=== PATIENT | male | born 1960 | race Caucasian/White ===

== ENCOUNTER → 2017-01-19 | Outpatient (CLI) | payer MEDICARE, OTHER ==
--- NOTE | 2017-01-19 12:11 | XR ---
EXAMINATION TYPE: XR chest 2V DATE OF EXAM: 01/19/2017 12:06 PM COMPARISON: NONE HISTORY: Shortness of breath TECHNIQUE: Frontal and lateral views of the chest are obtained. FINDINGS: Scattered senescent parenchymal changes noted. Hyperinflation compatible with COPD. No evidence for infiltrate. No evidence for atelectasis. Heart size is stable. Mediastinal structures are stable and grossly unremarkable. No evidence for hilar prominence. Degenerative changes dorsal spine. IMPRESSION: 1. No evidence for acute pulmonary disease.
--- NOTE | 2017-01-19 12:12 | XR ---
EXAMINATION TYPE: XR ribs LT DATE OF EXAM: 01/19/2017 12:06 PM CLINICAL HISTORY: Pain, Fall Four views of the ribs fail demonstrate evidence for displaced rib fracture or secondary sign of rib fracture. Visualized lungs are clear. No evidence for pneumothorax. IMPRESSION: No displaced rib fractures seen. ICD 10 NO FRACTURE, INITIAL EVALUATION
== END | disposition home or self-care (01) ==
LOC: RADXRMAIN 11:51
PROVIDERS: ATTEND Family Medicine
DX: R05 Cough (principal)
CPT/HCPCS: 71020

== ENCOUNTER → 2017-02-09 | Outpatient (CLI) | payer MEDICARE, OTHER ==
[2017-02-09 08:29] LABS: Basophils # (A) 0.1 k/uL (0-0.2); Basophils % (A) 1 %; CH 29.6; CHCM 33.9; Eosinophils % (A) 0 %; HCT 46.1 % (39.0-53.0); HDW 2.82; HGB 15.5 gm/dL (13.0-17.5); Luc # (Auto) 0.15; Luc % (Auto) 1; Lymphocytes # (A) 1.9 k/uL (1.0-4.8); Lymphocytes % (A) 17 %; MCH 29.6 pg (25.0-35.0); MCHC 33.7 g/dL (31.0-37.0); MCV 87.8 fL (80.0-100.0); Mean Platelet Volume 8.4; Monocytes # (A) 0.3 k/uL (0-1.0); Monocytes % (A) 2 %; Neutrophils # (A) 8.6 k/uL (1.3-7.7); Neutrophils % (A) 78 %; RBC 5.25 m/uL (4.30-5.90); RDW 13.1 % (11.5-15.5); WBC 10.9 k/uL (3.8-10.6); WBC (Perox) 11.44
== END | disposition home or self-care (01) ==
LOC: LABWHC1 08:09
PROVIDERS: ATTEND Family Medicine
DX: D69.6 Thrombocytopenia, unspecified (principal)
CPT/HCPCS: 36415; 85025

== ENCOUNTER 2019-12-10 16:22 | Inpatient (IN) | payer MEDICARE, OTHER ==
--- NOTE | 2019-12-10 16:59 | ED ---
General Adult HPI - General Chief complaint: Chest Pain Stated complaint: chest pain Time Seen by Provider: 12/10/19 16:38 Source: patient, RN notes reviewed, old records reviewed Mode of arrival: wheelchair Limitations: no limitations - History of Present Illness Initial comments: 59-year-old male presented for evaluation of chest pain. Patient has had symptoms for the past several months. He was evaluated by his primary care physician and sent to the emergency department with chief complaint of chest pain. Describes this as a pressure sensation in the center of his chest. It has been present for several months although does seem to fluctuate with exertion. He was given aspirin by his primary care physician and sent to the emergency department. He states he does have a history of previous NC, does not have any stenting. No history DVT or PE. He denies vomiting or diaphoresis. He states this pain didn't radiate to his jaw at times. He has minimal symptoms at the time my evaluation. He is a diabetic with history of hypertension. - Related Data Allergies Allergy/AdvReac Type Severity Reaction Status Date / Time Iodinated Contrast Media Allergy Anaphylaxis Verified 12/10/19 19:10 lithium Allergy Rash/Hives Verified 12/10/19 16:35 shellfish derived [Shellfish] Allergy Anaphylaxis Verified 12/10/19 16:35 Review of Systems ROS Statement: Those systems with pertinent positive or pertinent negative responses have been documented in the HPI. ROS Other: All systems not noted in ROS Statement are negative. Past Medical History Past Medical History: Diabetes Mellitus, Hyperlipidemia, Hypertension Additional Past Medical History / Comment(s): leukemia, chronic neck and back pain History of Any Multi-Drug Resistant Organisms: None Reported Past Surgical History: Hernia Repair Past Psychological History: No Psychological Hx Reported Smoking Status: Never smoker Past Alcohol Use History: None Reported Past Drug Use History: None Reported General Exam Limitations: no limitations General appearance: alert, in no apparent distress Head exam: Present: atraumatic, normocephalic Eye exam: Present: normal appearance, PERRL ENT exam: Present: normal exam Neck exam: Present: normal inspection. Absent: tenderness Respiratory exam: Present: normal lung sounds bilaterally. Absent: respiratory distress, wheezes Cardiovascular Exam: Present: regular rate, normal rhythm GI/Abdominal exam: Present: soft. Absent: distended, tenderness, guarding Extremities exam: Present: normal inspection, normal capillary refill. Absent: pedal edema, calf tenderness Neurological exam: Present: alert, oriented X3, CN II-XII intact. Absent: motor sensory deficit Psychiatric exam: Present: normal affect, normal mood Skin exam: Present: warm, dry, intact. Absent: cyanosis, diaphoretic Course Vital Signs 12/10/19 12/10/19 16:32 16:58 Temperature 98.5 F Pulse Rate 104 H 104 H Respiratory 18 18 Rate Blood Pressure 154/89 134/82 O2 Sat by Pulse 98 97 Oximetry EKG Findings - EKG Comments: EKG Findings:: EKG: Sinus tachycardia, rate of 104 LVH, T-wave abnormality in the inferior leads. He has a S wave in lead 1, Q3 T3, rate of 104, NV interval 140, QRS duration 88, QTC 491, no old for comparison. Medical Decision Making - Medical Decision Making 59-year-old male presenting with chest pain which is been ongoing for months. Symptoms by his primary care physician. EKG showing sinus rhythm with no ST segment elevation. Chest x-ray negative for acute cardiopulmonary disease. Patient has mild leukocytosis 13.4 with no definitive source of infection. He has an elevated blood sugar to 99. He is given some IV hydration and insulin for his elevated blood sugar. He has a negative troponin. He has CT angiography performed in the emergency department which is negative for pulmonary embolism, does show coronary calcifications. Patient is initiated on heparin. Case is discussed with the admitting physician Dr. Reynaga who is able to evaluate the patient in the emergency department. Echo has been ordered this is pending. Cardiology has been placed on consult, serial cardiac enzymes will be obtained. - Lab Data Result diagrams: 12/10/19 16:54 12/10/19 16:54 Lab Results 12/10/19 12/10/19 12/10/19 Range/Units 16:54 16:54 16:54 WBC 13.4 H (3.8-10.6) k/uL RBC 5.39 (4.30-5.90) m/uL Hgb 15.5 (13.0-17.5) gm/dL Hct 47.3 (39.0-53.0) % MCV 87.7 (80.0-100.0) fL MCH 28.7 (25.0-35.0) pg MCHC 32.8 (31.0-37.0) g/dL RDW 13.2 (11.5-15.5) % Plt Count 259 (150-450) k/uL Neutrophils % 63 % Lymphocytes % 30 % Monocytes % 4 % Eosinophils % 1 % Basophils % 1 % Neutrophils # 8.4 H (1.3-7.7) k/uL Lymphocytes # 4.0 (1.0-4.8) k/uL Monocytes # 0.6 (0-1.0) k/uL Eosinophils # 0.1 (0-0.7) k/uL Basophils # 0.1 (0-0.2) k/uL PT (9.0-12.0) sec INR (<1.2) APTT (22.0-30.0) sec Sodium 136 L (137-145) mmol/L Potassium 4.5 (3.5-5.1) mmol/L Chloride 103 (98-107) mmol/L Carbon Dioxide 18 L (22-30) mmol/L Anion Gap 15 mmol/L BUN 16 (9-20) mg/dL Creatinine 0.75 (0.66-1.25) mg/dL Est GFR (CKD-EPI)AfAm >90 (>60 ml/min/1.73 sqM) Est GFR (CKD-EPI)NonAf >90 (>60 ml/min/1.73 sqM) Glucose 299 H (74-99) mg/dL Calcium 9.9 (8.4-10.2) mg/dL Magnesium 1.9 (1.6-2.3) mg/dL Total Bilirubin 0.5 (0.2-1.3) mg/dL AST 49 (17-59) U/L ALT 31 (4-49) U/L Alkaline Phosphatase 77 (38-126) U/L Troponin I (0.000-0.034) ng/mL NT-Pro-B Natriuret Pep 35 pg/mL Total Protein 7.4 (6.3-8.2) g/dL Albumin 4.4 (3.5-5.0) g/dL Lipase 169 (23-300) U/L 12/10/19 12/10/19 Range/Units 16:54 16:54 WBC (3.8-10.6) k/uL RBC (4.30-5.90) m/uL Hgb (13.0-17.5) gm/dL Hct (39.0-53.0) % MCV (80.0-100.0) fL MCH (25.0-35.0) pg MCHC (31.0-37.0) g/dL RDW (11.5-15.5) % Plt Count (150-450) k/uL Neutrophils % % Lymphocytes % % Monocytes % % Eosinophils % % Basophils % % Neutrophils # (1.3-7.7) k/uL Lymphocytes # (1.0-4.8) k/uL Monocytes # (0-1.0) k/uL Eosinophils # (0-0.7) k/uL Basophils # (0-0.2) k/uL PT 9.6 (9.0-12.0) sec INR 0.9 (<1.2) APTT 22.9 (22.0-30.0) sec Sodium (137-145) mmol/L Potassium (3.5-5.1) mmol/L Chloride (98-107) mmol/L Carbon Dioxide (22-30) mmol/L Anion Gap mmol/L BUN (9-20) mg/dL Creatinine (0.66-1.25) mg/dL Est GFR (CKD-EPI)AfAm (>60 ml/min/1.73 sqM) Est GFR (CKD-EPI)NonAf (>60 ml/min/1.73 sqM) Glucose (74-99) mg/dL Calcium (8.4-10.2) mg/dL Magnesium (1.6-2.3) mg/dL Total Bilirubin (0.2-1.3) mg/dL AST (17-59) U/L ALT (4-49) U/L Alkaline Phosphatase (38-126) U/L Troponin I <0.012 (0.000-0.034) ng/mL NT-Pro-B Natriuret Pep pg/mL Total Protein (6.3-8.2) g/dL Albumin (3.5-5.0) g/dL Lipase (23-300) U/L Critical Care Time Critical Care Time: Yes Total Critical Care Time: 35 Disposition Clinical Impression: Unstable angina pectoris Disposition: ADMITTED IP TO THIS HOSP Condition: Stable Is patient prescribed a controlled substance at d/c from ED?: No Referrals: Alex Mars MD [Primary Care Provider] - 1-2 days Decision to Admit Reason: Admit from EC Decision Date: 12/10/19 Decision Time: 20:08
[2019-12-10 17:09] LABS: Basophils # (A) 0.1 k/uL (0-0.2); Basophils % (A) 1 %; Eosinophils # (A) 0.1 k/uL (0-0.7); Eosinophils % (A) 1 %; HCT 47.3 % (39.0-53.0); HGB 15.5 gm/dL (13.0-17.5); Lymphocytes % (A) 30 %; MCH 28.7 pg (25.0-35.0); MCHC 32.8 g/dL (31.0-37.0); MCV 87.7 fL (80.0-100.0); Mean Platelet Volume 7.7; Monocytes # (A) 0.6 k/uL (0-1.0); Monocytes % (A) 4 %; Neutrophils # (A) 8.4 k/uL (1.3-7.7); Neutrophils % (A) 63 %; Platelet Count 259 k/uL (150-450); RBC 5.39 m/uL (4.30-5.90); RDW 13.2 % (11.5-15.5); WBC 13.4 k/uL (3.8-10.6)
[2019-12-10 17:38] LABS: INR 0.9 (<1.2); Partial Thromboplastin Time 22.9 sec (22.0-30.0); Prothrombin Time 9.6 sec (9.0-12.0)
--- NOTE | 2019-12-10 17:46 | XR ---
EXAMINATION TYPE: XR chest 2V DATE OF EXAM: 12/10/2019 COMPARISON: Prior chest x-ray 01/19/2017 HISTORY: Chest pain TECHNIQUE: Frontal and lateral views of the chest are obtained. FINDINGS: There is no focal air space opacity, pleural effusion, or pneumothorax seen. The cardiac silhouette size is within normal limits. The osseous structures are intact. There is thoracic spond ylosis. Aorta shows a stable appearance. IMPRESSION: No acute cardiopulmonary process. Stable exam, no acute cardiopulmonary disease.
[2019-12-10 18:03] LABS: ALT 31 U/L (4-49); AST 49 U/L (17-59); African American GFR (CKD) >90 (>60 ml/min/1.73 sqM); Albumin 4.4 g/dL (3.5-5.0); Alkaline Phosphatase 77 U/L (38-126); Anion Gap 15 mmol/L; Blood Urea Nitrogen 16 mg/dL (9-20); Calcium 9.9 mg/dL (8.4-10.2); Carbon Dioxide 18 mmol/L (22-30); Chloride 103 mmol/L (98-107); Glucose 299 mg/dL (74-99); Magnesium 1.9 mg/dL (1.6-2.3); Non-African American GFR(CKD) >90 (>60 ml/min/1.73 sqM); Potassium 4.5 mmol/L (3.5-5.1); Sodium 136 mmol/L (137-145); Total Bilirubin 0.5 mg/dL (0.2-1.3); Total Protein 7.4 g/dL (6.3-8.2)
[2019-12-10] MEDS ORDERED: diphenhydrAMINE 50 MG/ML 1 ML VIAL IVP STA (18:45)
[2019-12-10] MEDS ORDERED: methylPREDNISolone SOD SUCCI 125 MG/2 ML VIAL IV STA (18:45)
[2019-12-10] MEDS ORDERED: INSULIN REGULAR 100 UNIT/ML VIAL IV ONE (18:45)
[2019-12-10] MEDS ORDERED: SODIUM CHLORIDE 0.9% 500 ML 500 ML IV ONE (18:45)
[2019-12-10] MEDS ORDERED: FAMOTIDINE 20 MG/2 ML VIAL IV STA (18:45)
--- NOTE | 2019-12-10 19:59 | CT ---
EXAMINATION TYPE: CT angio chest DATE OF EXAM: 12/10/2019 COMPARISON: Chest x-ray same date HISTORY: Chest pain. CT DLP: 475.7 mGycm Automated exposure control for dose reduction was used. CONTRAST: CTA scan of the thorax is performed with IV Contrast, patient injected with 80ml mL of Isovue 370, pu lmonary embolism protocol. MIP images are created and reviewed. 3D reconstructed images are created on an independent workstation and reviewed. FINDINGS: LUNGS: The lungs are grossly clear, there is no concerning parenchymal mass or nodule identified. T here is no pleural effusion or pneumothorax seen. The tracheobronchial tree is patent. AORTA: No additional significant abnormality is seen. MEDIASTINUM: There is less than optimal enhancement of the pulmonary artery and its branches, there i s no CT evidence for pulmonary embolism. There are no greater than 1 cm hilar or mediastinal lymph n odes. No pericardial effusion is seen. There are coronary artery calcifications present. OTHER: Liver shows low attenuation likely due to hepatic steatosis. Possible gynecomastia the retroa reolar regions.. IMPRESSION: NO EVIDENT PULMONARY EMBOLISM WITHIN LIMITATIONS OF THE EXAM. CORONARY ARTERY DISEASE. HEPATIC STEATO SIS.
[2019-12-10] MEDS ORDERED: HEPARIN SODIUM,PORCINE 5,000 UNIT/ML 1 ML VIAL IV PRN (20:04)
[2019-12-10] MEDS ORDERED: HEPARIN SODIUM,PORCINE 5,000 UNIT/ML 1 ML VIAL IV ONE (20:04)
[2019-12-10] MEDS ORDERED: NITROGLYCERIN SL TABS 0.4 MG TAB SUBLINGUAL PRN (20:04)
[2019-12-10] MEDS ORDERED: MORPHINE SULFATE 4 MG/ML SYRINGE IV PRN (20:05)
[2019-12-10] MEDS ORDERED: NALOXONE 0.4 MG/ML 1 ML VIAL IV PRN (20:05)
[2019-12-10] MEDS ORDERED: ACETAMINOPHEN TAB 325 MG TAB PO PRN (20:05)
[2019-12-10] MEDS ORDERED: HYDROcodone/APAP 5-325MG 1 EACH TAB PO PRN (20:22)
[2019-12-10] MEDS ORDERED: TEMAZEPAM 15 MG CAP PO PRN (20:22)
[2019-12-10] MEDS ORDERED: ALPRAZolam 0.25 MG TAB PO PRN (20:22)
[2019-12-10] MEDS: HEPARIN SOD,PORK IN 0.45% NACL 25,000 UNIT in 0.45% NACL 1 250ML.BAG IV SCH (22:19)
--- NOTE | 2019-12-11 00:41 | HP ---
HISTORY AND PHYSICAL DATE OF SERVICE: 12/10/2019. CHIEF COMPLAINT: Chest pain. HISTORY OF PRESENT ILLNESS: This 59-year-old gentleman with a past medical history of multiple medical problems including diabetes, hypertension, hyperlipidemia, history of leukemia, history of chronic neck and back pain being followed by Dr. Mars in the outpatient setting, complaining of chest pain. The pain was felt for the last several months, sometimes exercise related. The pain is felt in the anterior part of chest which is aggravated by even movement and rolling around the bed and also some sharp component also. The pain was also found to be fluctuating with exertion and Dr. Mars recommend the patient come to the emergency room and was admitted for further evaluation and treatment. In the ER, the initial evaluation including EKG showed sinus tachycardia and as well as possibly right ventricular hypertrophy with deep S waves in lead 1 and lead 3 with some T inversion. The D-dimer was normal and CT angiography of the chest which was reviewed personally, also showed no evidence of any pulmonary embolism. Patient admitted for further evaluation and treatment. There is no history of any fever, rigors. No history of headache, loss of consciousness, seizures. A chest x-ray which was reviewed personally by me showed no evidence of cardiomegaly and there is no history of fever, rigors or chills. No history of headache, loss of consciousness or seizures. PAST MEDICAL HISTORY: History of diabetes, hypertension, hyperlipidemia, history of leukemia, history of chronic neck and back pain. MEDICATIONS: Prior to admission include medications are list is not available. ALLERGIES: IODINATED CONTRAST DYES, LITHIUM AND SHELLFISH. FAMILY HISTORY: Interestingly the patient had a family history of multiple siblings having pulmonary hypertension and at least 2 people have because of that, also. The patient had 12 siblings and 1 other sibling also recently because of apparent reaction to the contrast dye while on the table. He was on hemodialysis as well. SOCIAL HISTORY: No history of smoking. No history of alcohol intake. REVIEW OF SYSTEMS: ENT: No diminished vision. No diminished hearing. CARDIOVASCULAR: As mentioned earlier. RESPIRATORY: As mentioned earlier. GASTROINTESTINAL: No nausea or vomiting. : No dysuria. CENTRAL NERVOUS SYSTEM: No numbness or weakness. ALLERGY/IMMUNOLOGY: No asthma or hayfever. MUSCULOSKELETAL as mentioned. HEMATOLOGY/ONCOLOGY: No history of anemia. ENDOCRINE: No history of diabetes or hypothyroidism. CONSTITUTIONAL: As mentioned earlier. DERMATOLOGY: Negative. RHEUMATOLOGY negative. PSYCHIATRY as mentioned earlier. PHYSICAL EXAMINATION: The patient is alert, oriented x3. Pulse is 104. Blood pressure 135/82, respiration 18, temperature 98.4, pulse ox 97% on room air. HEENT: Conjunctivae normal. Oral mucosa moist. NECK is no jugular venous distention. No carotid bruit. No lymph node enlargement. Cardiovascular system: S1, S2 muffled. RESPIRATORY: Breath sounds diminished in the bases. A few scattered rhonchi. No crackles. ABDOMEN: Obese. Soft, nontender. No mass palpable. No ascites. LEGS: No edema. No swelling. NERVOUS SYSTEM: Higher functions as mentioned earlier. Moves all 4 limbs. No focal motor or sensory deficits. LYMPHATICS: No lymph nodes palpable in the neck, axillae or groin. SKIN: No ulcer, no rashes or bleeding. JOINTS: No active deforming arthropathy. LABORATORY DATA: EKG noted. Otherwise, the chest x-ray noted. WBC 13.4 sodium 136. ASSESSMENT: 1. Chest pain possible unstable angina. 2. Rule out pulmonary hypertension. 3. 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 4. Hyponatremia. 5. Increased random blood sugar, possible diabetes type 2. 6. Increased WBC. 7. Hyperlipidemia. 8. Hypertension. 9. Leukemia. 10.History of chronic neck and back pain. 11.History of hernia repair. RECOMMENDATIONS AND DISCUSSION: This 59-year-old gentleman presented with multiple complex medical issues, we will monitor the patient closely, continue the current medications, management and symptomatic treatment. EKG showed significant evidence of possible RVH, but however the CT angio of the chest showed no evidence of pulmonary embolism. I would recommend a 2D echo with Doppler. Symptomatic treatment. Rule out myocardial infarction. The patient also will require other cardiac workup to rule out the possibility of coronary disease asthma as well. Overall prognosis guarded because of multiple complex medical issues and further recommendations to follow. A copy of dictation being forwarded to Dr. Mars who is the primary physician. See orders for details. MMODL / IJN: [id number] /
[2019-12-11 04:43] LABS: Appearance,Urine Clear (Clear); Bilirubin,Urine Negative (Negative); Blood,Urine Negative (Negative); Color,Urine Yellow; Glucose,Urine (UA) 4+ (Negative); Ketones,Urine 1+ (Negative); Leukocyte Esterase,Urine Negative (Negative); Nitrite,Urine Negative (Negative); PH, Urine 5.5 (5.0-8.0); Protein,Urine Negative (Negative); Specific Gravity,Urine 1.036 (1.001-1.035); Urobilinogen,Urine <2.0 mg/dL (<2.0)
[2019-12-11 05:41] LABS: Amphetamine Screen,Urine Not Detected (NotDetected); Barbiturate Screen,Urine Not Detected (NotDetected); Benzodiazepines Screen,Urine Not Detected (NotDetected); Cocaine Screen,Urine Not Detected (NotDetected); Methadone Screen, Urine Not Detected (NotDetected); Opiate Screen,Urine Detected (NotDetected); Oxycodone Screen, Urine Not Detected (NotDetected); Phencyclidine Screen,Urine Not Detected (NotDetected); Tricyclic Antidepressant,Urine Not Detected (NotDetected); Urn Cannabinoid Scrn Not Detected (NotDetected)
[2019-12-11 06:17] LABS: Basophils % (A) 0 %; Eosinophils % (A) 0 %; HCT 48.5 % (39.0-53.0); HGB 15.7 gm/dL (13.0-17.5); Lymphocytes % (A) 17 %; MCH 29.1 pg (25.0-35.0); MCHC 32.4 g/dL (31.0-37.0); Mean Platelet Volume 8.3; Monocytes # (A) 0.2 k/uL (0-1.0); Monocytes % (A) 1 %; Neutrophils # (A) 9.7 k/uL (1.3-7.7); Neutrophils % (A) 81 %; Platelet Count 231 k/uL (150-450); RBC 5.39 m/uL (4.30-5.90); RDW 13.4 % (11.5-15.5)
[2019-12-11 06:37] LABS: ALT 29 U/L (4-49); AST 36 U/L (17-59); African American GFR (CKD) >90 (>60 ml/min/1.73 sqM); Albumin 4.2 g/dL (3.5-5.0); Alkaline Phosphatase 73 U/L (38-126); Anion Gap 12 mmol/L; Blood Urea Nitrogen 16 mg/dL (9-20); Calcium 9.6 mg/dL (8.4-10.2); Carbon Dioxide 21 mmol/L (22-30); Chloride 105 mmol/L (98-107); Glucose 337 mg/dL (74-99); Magnesium 2.1 mg/dL (1.6-2.3); Non-African American GFR(CKD) >90 (>60 ml/min/1.73 sqM); Potassium 4.8 mmol/L (3.5-5.1); Sodium 138 mmol/L (137-145); Total Bilirubin 0.7 mg/dL (0.2-1.3); Total Protein 7.4 g/dL (6.3-8.2)
[2019-12-11] MEDS ORDERED: PANTOPRAZOLE 40 MG TABLET PO SCH (07:30)
[2019-12-11] MEDS ORDERED: LISINOPRIL 2.5 MG TAB PO SCH (09:00)
--- NOTE | 2019-12-11 09:52 | P.CNPUL ---
History of Present Illness Consult date: 12/11/19 History of present illness: 59-year-old male patient presented emergency department yesterday because of chest pain. Apparently his pain is been going on for several months. He was sent over for further evaluation by family care physician and he was admitted for observation. He described pressure sensation center of his chest. The single and on for several months fluctuating with exertion. No significant cough or sputum production. No chest tightness. No wheezing. No hemoptysis. No pleurisy. No fever. No chills. No shoulder or jaw pain. He is known to have hypertension, diabetes mellitus and hyperlipidemia. Under observation, the patient had 3 sets of cardiac enzymes were negative. The chest x-ray showed no acute abnormalities. The CT angiogram of the chest showed lungs being clear without evidence of any pulmonary nodular lesions. There was no evidence of any pleural effusion or pneumothorax. The mediastinum was clear and the patient did not have any evidence of pulmonary embolism. EKG showed a sinus rhythm at the rate of 104.. Voltage criteria of LVH with some nonspecific T-wave abnormalities involving the inferior leads. The patient has normal blood work this morning. He did have a mild component of anion gap metabolic acidosis with a bicarb of 18 and this has recovered. BNP level is at 35. Rest of the blood work is all within normal limits. Review of Systems Constitutional: Denies chills, Denies fever Eyes: denies as per HPI, denies blurred vision, denies bulging eye, denies decreased vision, denies diplopia, denies discharge, denies dry eye, denies irritation, denies itching, denies pain, denies photophobia, denies loss of peripheral vision, denies loss of vision, denies tunnel vision/blind spots Ears: deny: decreased hearing, ear discharge, earache, tinnitus Ears, nose, mouth and throat: Denies headache, Denies sore throat Breasts: absent: as per HPI, gynecomastia Cardiovascular: Reports as per HPI, Reports chest pain Respiratory: Reports as per HPI Gastrointestinal: Reports as per HPI Genitourinary: Reports as per HPI Musculoskeletal: Reports as per HPI Musculoskeletal: absent: ankle pain, ankle stiffness, ankle swelling Integumentary: Reports as per HPI Neurological: Reports as per HPI Psychiatric: Reports as per HPI Endocrine: Reports as per HPI Hematologic/Lymphatic: Reports as per HPI Allergic/Immunologic: Reports as per HPI Past Medical History Past Medical History: Coronary Artery Disease (CAD) (at the age of 33), Diabetes Mellitus, Hyperlipidemia, Hypertension Additional Past Medical History / Comment(s): CLL-leukemia, chronic neck and back pain with chronic arthritis and pain and the patient has been maintained on morphine 15 mg twice a day for pain control History of Any Multi-Drug Resistant Organisms: None Reported Past Surgical History: Hernia Repair Past Psychological History: No Psychological Hx Reported Smoking Status: Never smoker Past Alcohol Use History: None Reported Past Drug Use History: None Reported Additional History: The patient has a strong family history for primary pulmonary hypertension. 2 of his siblings from complications of pulmonary hypertension , and he has another sibling who passed from complications of a heart attack, coronary artery disease and another sibling from lung cancer Medications and Allergies Home Medications Medication Instructions Recorded Confirmed Type Atorvastatin [Lipitor] 20 mg PO DAILY 12/10/19 12/10/19 History Citalopram Hydrobromide [CeleXA] 20 mg PO DAILY 12/10/19 12/10/19 History Escitalopram Oxalate [Lexapro] 10 mg PO HS 12/10/19 12/10/19 History Fenofibrate 54 mg PO HS 12/10/19 12/10/19 History Gabapentin (Unknown Dose) 1 cap PO DAILY 12/10/19 12/10/19 History HYDROcodone/APAP 5-325MG [[place] 1 tab PO BID 12/10/19 12/10/19 History 5-325] Lantus (Unknown Dose) 0 unit SQ HS 12/10/19 12/10/19 History Levocetirizine Dihydrochloride 5 mg PO DAILY 12/10/19 12/10/19 History [Xyzal] Lisinopril [Zestril] 2.5 mg PO DAILY 12/10/19 12/10/19 History Morphine Sulfate [Morphine Sulfate 15 mg PO BID 12/10/19 12/10/19 History ER] Omeprazole [PriLOSEC] 20 mg PO AC-BID 12/10/19 12/10/19 History Pioglitazone [Actos] 15 mg PO DAILY 12/10/19 12/10/19 History amLODIPine [Norvasc] 10 mg PO DAILY 12/10/19 12/10/19 History metFORMIN HCL 1,000 mg PO BID 12/10/19 12/10/19 History traZODone HCL 50 mg PO HS 12/10/19 12/10/19 History Allergies Allergy/AdvReac Type Severity Reaction Status Date / Time Iodinated Contrast Media Allergy Anaphylaxis Verified 12/10/19 22:11 lithium Allergy Rash/Hives Verified 12/10/19 22:11 shellfish derived [Shellfish] Allergy Anaphylaxis Verified 12/10/19 22:11 Physical Exam Vitals: Vital Signs Temp Pulse Pulse Resp BP BP Pulse Ox 12/11/19 08:00 98.1 F 91 18 171/96 95 12/11/19 07:48 97.6 F 88 18 145/88 98 12/11/19 03:57 96.8 F L 78 20 132/94 96 12/10/19 23:50 71 12/10/19 23:40 70 12/10/19 23:30 74 12/10/19 23:20 75 12/10/19 23:00 70 12 132/88 12/10/19 22:50 72 16 12/10/19 22:40 76 12/10/19 22:30 76 12/10/19 22:23 82 16 132/88 12/10/19 22:20 96 12/10/19 22:10 95 12/10/19 22:00 97 12/10/19 19:40 141/82 96 12/10/19 19:30 156/108 96 12/10/19 16:58 104 H 18 134/82 97 12/10/19 16:32 98.5 F 104 H 18 154/89 98 Intake and Output 12/10/19 12/11/19 12/11/19 22:59 06:59 14:59 Intake Total 54.667 Balance 54.667 Intake: Intake, IV Titration 54.667 Amount Heparin Sod,Pork in 0.45% 54.667 NaCl 25,000 unit In 0.45 % NaCl 1 250ml.bag @ 10. 968 UNITS/KG/HR 10 mls/hr IV .Q24H [facility] Rx#: [id number] Other: Weight 91.172 kg The patient appeared well nourished and normally developed. Vital signs as documented. Head exam is unremarkable. No scleral icterus or corneal arcus noted. Neck is without jugular venous distension, thyromegaly, or carotid bruits. Carotid upstrokes are brisk bilaterally. Lungs are clear to auscultation and percussion. Cardiac exam reveals the PMI to be normally sized and situated. Rhythm is regular. First and second heart sounds normal. No murmurs, rubs or gallops. Abdominal exam reveals normal bowel sounds, no masses, no organomegaly and no aortic enlargement. Extremities are nonedematous and both femoral and pedal pulses are normal.Examination of the skin revealed no evidence of signi ficant rashes, suspicious appearing nevi or other concerning lesions. Neurologically awake and alert and there is no focal neurological deficits. Results - Laboratory Findings CBC and BMP: 12/11/19 05:21 12/11/19 05:21 PT/INR, D-dimer PT 9.6 sec (9.0-12.0) 12/10/19 16:54 INR 0.9 (<1.2) 12/10/19 16:54 Abnormal lab findings: Abnormal Labs 12/10/19 12/10/19 12/11/19 16:54 16:54 01:42 WBC 13.4 H Neutrophils # 8.4 H APTT 42.4 H Sodium 136 L Carbon Dioxide 18 L Glucose 299 H Ur Specific [place] Urine Glucose (UA) Urine Ketones Urine Opiates Screen 12/11/19 12/11/19 12/11/19 04:00 05:21 05:21 WBC 12.0 H Neutrophils # 9.7 H APTT Sodium Carbon Dioxide 21 L Glucose 337 H Ur Specific [place] 1.036 H Urine Glucose (UA) 4+ H Urine Ketones 1+ H Urine Opiates Screen Detected H - Diagnostic Findings Chest x-ray: image reviewed CT scan - chest: image reviewed Assessment and Plan Plan: 1 atypical chest pain currently under investigation. Troponin times she has been negative. EKG showing sinus rhythm with some voltage criteria of LVH and nonspecific T-wave changes in the inferior leads. The chest x-ray is within normal. CT angiogram is within normal. Nevertheless, the patient has multiple risk factors for CAD including diabetes hypertension hyperlipidemia and he claims to have had a myocardial infarction at the age of 33. This warrants further investigation, possibly a cardiac stress test and an angiogram and later stage. Also, he has strong family history for primary pulmonary hypertension and coronary artery disease. 2 diabetes mellitus maintained on Lantus 3 hypertension 4 hyperlipidemia 5 known history of COPD 6 obesity with a BMI of 34 7 lifetime nonsmoker 8 questionable history of CLL versus hematologic disorder effecting his platelet counts. Current hematologic profile is within normal. Skin Dr. Wheat in the past Plan Pulmonary status is stable Echocardiogram pending We'll discuss with cardiology. Possible cardiac stress test versus angiogram baseline above-mentioned symptoms and history. He remains on IV heparin for now. IV heparin for now Outpatient medications resumed.
[2019-12-11] MEDS ORDERED: SODIUM CHLORIDE 0.9% 1,000 ML in EMPTY BAG 1 BAG IV ONE (10:19)
[2019-12-11] MEDS ORDERED: ASPIRIN 81 MG PO STA (10:28)
[2019-12-11] MEDS ORDERED: PIOGLITAZONE 15 MG TAB PO SCH (10:30)
[2019-12-11] MEDS ORDERED: HYDROcodone/APAP 5-325MG 1 EACH TAB PO SCH (10:30)
[2019-12-11] MEDS ORDERED: predniSONE 50 MG TAB PO ONE ×2 (10:30→18:00)
--- NOTE | 2019-12-11 10:32 | P.CRDCN ---
History of Present Illness History of present illness: HISTORY OF PRESENTING ILLNESS This is a pleasant 59-year-old male past medical history significant for hypertension, dyslipidemia, diabetes mellitus and chronic pain. He states he believes he had a heart attack when he was 33 years old and underwent cardiac catheterization however did not receive any angioplasty that he is aware of. He does not follow in the office with a skid adzer. We have been asked to see in consultation for chest pain. He states he has been experiencing pain and discomfort in his chest intermittently for the last 3 months. The symptoms have been increasing in frequency and intensity. He has been experiencing chest pain described as a tightness associated with increased fatigue, diaphoresis and palpitations at times. The pain radiates at times to his jaw and is worse with activity. DIAGNOSTICS EKG reveals sinus tachycardia heart rate 104, T-wave inversion in the inferior leads and LVH. Chest xray negative for an acute cardiopulmonary process. CTA negative for PE with evidence of coronary calcifications Laboratory reviewed, WBC 12, hemoglobin 15.7, platelets 231, sodium 138, potassium 4.8, creatinine 0.72, magnesium 2.1, cardiac enzymes negative 3, NT proBNP 35. Current cardiac medications include lisinopril 2.5 mg daily, atorvastatin 20 mg daily, amlodipine 10 mg daily and she no fibrin 54 mg at that time. Most recent stress test was a Lexiscan in 2013 was negative for stress induced ischemia. Most recent echocardiogram obtained 2013 revealed preserved LV systolic function with EF 55-60%. REVIEW OF SYSTEMS At the time of my exam: CONSTITUTIONAL: Denies fever or chills. CARDIOVASCULAR: Denies chest pain, shortness of breath, orthopnea, PND or palpitations. RESPIRATORY: Denies cough. GASTROINTESTINAL: Denies abdominal pain, diarrhea, constipation, nausea or vomiting. MUSCULOSKELETAL: Denies myalgias. NEUROLOGIC: Denies numbness, tingling or weakness. ENDOCRINE: Denies fatigue, weight change, polydipsia or polyurina. GENITOURINARY: Denies burning, hematuria or urgency with micturation. HEMATOLOGIC: Denies history of anemia or bleeding. PHYSICAL EXAMINATION Blood pressure 171/96 heart rate 91 afebrile and maintaining oxygen saturation on room air. CONSTITUTIONAL: No apparent distress. HEENT: Head is normocephalic. Pupils are equal, round. Sclerae anicteric. Mucous membranes of the mouth are moist. No JVD. No carotid bruit. CHEST EXAMINATION: Lungs are clear to auscultation. No chest wall tenderness is noted on palpation or with deep breathing. HEART EXAMINATION: Regular rate and rhythm. S1, S2 heard. No murmurs, gallops or rub. ABDOMEN: Soft, nontender. Positive bowel sounds. EXTREMITIES: 2+ peripheral pulses, no lower extremity edema and no calf tenderness. NEUROLOGIC EXAMINATION: Patient is awake, alert and oriented x3. ASSESSMENT Unstable angina Leukocytosis Hypertension Dyslipidemia Diabetes mellitus PLAN An acute coronary event has been ruled out. Obtain 2D echocardiogram and doppler study to assess cardiac structure and function. Recommend proceeding with coronary angiography to evaluate coronary arteries. This has been scheduled for tomorrow morning with Dr. Guajardo. I have discussed the risks, benefits and alternative therapies for the above- mentioned procedure and for both sedation/analgesia as well as necessary blood product administration, if indicated, as they pertain to this patient. The patient has indicated understanding and acceptance of the risks and procedures discussed. Increase lisinopril to 5 mg daily. Initiate aspirin daily and lopressor 25 mg BID. Further recommendations to follow based on clinical course. Thank you kindly for this consultation. Nurse Practitioner note has been reviewed, I agree with a documented findings and plan of care. Patient was seen and examined. Past Medical History Past Medical History: Diabetes Mellitus, Hyperlipidemia, Hypertension Additional Past Medical History / Comment(s): leukemia, chronic neck and back pain History of Any Multi-Drug Resistant Organisms: None Reported Past Surgical History: Hernia Repair Past Psychological History: No Psychological Hx Reported Smoking Status: Never smoker Past Alcohol Use History: None Reported Past Drug Use History: None Reported Medications and Allergies Home Medications Medication Instructions Recorded Confirmed Type Atorvastatin [Lipitor] 20 mg PO DAILY 12/10/19 12/10/19 History Citalopram Hydrobromide [CeleXA] 20 mg PO DAILY 12/10/19 12/10/19 History Escitalopram Oxalate [Lexapro] 10 mg PO HS 12/10/19 12/10/19 History Fenofibrate 54 mg PO HS 12/10/19 12/10/19 History Gabapentin (Unknown Dose) 1 cap PO DAILY 12/10/19 12/10/19 History HYDROcodone/APAP 5-325MG [Vincent 1 tab PO BID 12/10/19 12/10/19 History 5-325] Lantus (Unknown Dose) 0 unit SQ HS 12/10/19 12/10/19 History Levocetirizine Dihydrochloride 5 mg PO DAILY 12/10/19 12/10/19 History [Xyzal] Lisinopril [Zestril] 2.5 mg PO DAILY 12/10/19 12/10/19 History Morphine Sulfate [Morphine Sulfate 15 mg PO BID 12/10/19 12/10/19 History ER] Omeprazole [PriLOSEC] 20 mg PO AC-BID 12/10/19 12/10/19 History Pioglitazone [Actos] 15 mg PO DAILY 12/10/19 12/10/19 History amLODIPine [Norvasc] 10 mg PO DAILY 12/10/19 12/10/19 History metFORMIN HCL 1,000 mg PO BID 12/10/19 12/10/19 History traZODone HCL 50 mg PO HS 12/10/19 12/10/19 History Allergies Allergy/AdvReac Type Severity Reaction Status Date / Time Iodinated Contrast Media Allergy Anaphylaxis Verified 12/10/19 22:11 lithium Allergy Rash/Hives Verified 12/10/19 22:11 shellfish derived [Shellfish] Allergy Anaphylaxis Verified 12/10/19 22:11 Physical Exam Vitals: Vital Signs Temp Pulse Resp BP Pulse Ox 12/11/19 07:48 97.6 F 88 18 145/88 98 12/11/19 03:57 96.8 F L 78 20 132/94 96 12/10/19 23:50 71 12/10/19 23:40 70 12/10/19 23:30 74 12/10/19 23:20 75 12/10/19 23:00 70 12 132/88 12/10/19 22:50 72 16 12/10/19 22:40 76 12/10/19 22:30 76 12/10/19 22:23 82 16 132/88 12/10/19 22:20 96 12/10/19 22:10 95 12/10/19 22:00 97 12/10/19 19:40 141/82 96 12/10/19 19:30 156/108 96 12/10/19 16:58 104 H 18 134/82 97 12/10/19 16:32 98.5 F 104 H 18 154/89 98 Intake and Output 12/10/19 12/11/19 12/11/19 22:59 06:59 14:59 Intake Total 54.667 Balance 54.667 Intake: Intake, IV Titration 54.667 Amount Heparin Sod,Pork in 0.45% 54.667 NaCl 25,000 unit In 0.45 % NaCl 1 250ml.bag @ 10. 968 UNITS/KG/HR 10 mls/hr IV .Q24H [facility] Rx#: [id number] Other: Weight 91.172 kg Results 12/11/19 05:21 12/11/19 05:21 Cardiac Enzymes 12/10/19 12/10/19 12/10/19 Range/Units 16:54 16:54 23:06 AST 49 (17-59) U/L Troponin I <0.012 <0.012 (0.000-0.034) ng/mL 12/11/19 12/11/19 Range/Units 05:21 05:21 AST 36 (17-59) U/L Troponin I <0.012 (0.000-0.034) ng/mL Coagulation 12/10/19 12/11/19 Range/Units 16:54 01:42 PT 9.6 (9.0-12.0) sec APTT 22.9 42.4 H (22.0-30.0) sec CBC 12/10/19 12/11/19 Range/Units 16:54 05:21 WBC 13.4 H 12.0 H (3.8-10.6) k/uL RBC 5.39 5.39 (4.30-5.90) m/uL Hgb 15.5 15.7 (13.0-17.5) gm/dL Hct 47.3 48.5 (39.0-53.0) % Plt Count 259 231 (150-450) k/uL Comprehensive Metabolic Panel 12/10/19 12/11/19 Range/Units 16:54 05:21 Sodium 136 L 138 (137-145) mmol/L Potassium 4.5 4.8 (3.5-5.1) mmol/L Chloride 103 105 (98-107) mmol/L Carbon Dioxide 18 L 21 L (22-30) mmol/L BUN 16 16 (9-20) mg/dL Creatinine 0.75 0.72 (0.66-1.25) mg/dL Glucose 299 H 337 H (74-99) mg/dL Calcium 9.9 9.6 (8.4-10.2) mg/dL AST 49 36 (17-59) U/L ALT 31 29 (4-49) U/L Alkaline Phosphatase 77 73 (38-126) U/L Total Protein 7.4 7.4 (6.3-8.2) g/dL Albumin 4.4 4.2 (3.5-5.0) g/dL Current Medications Generic Name Dose Route Start Last Admin Trade Name Freq PRN Reason Stop Dose Admin Acetaminophen 650 mg 12/10/19 20:05 Tylenol Tab PO Q6HR PRN Mild Pain or Fever > 100.5 Hydrocodone Bitart/Acetaminophen 1 each 12/10/19 20:22 Vincent 5-325 PO Q6HR PRN Pain Alprazolam 0.25 mg 12/10/19 20:22 Xanax PO TID PRN Anxiety Heparin Sodium (Porcine) 0 unit 12/10/19 20:04 12/11/19 03:43 Heparin IV 2,279 unit PER PROTOCOL PRN Administration Low PTT Protocol Heparin Sodium/Sodium Chloride 250 mls @ 10 mls/hr 12/10/19 20:15 12/11/19 03:47 25,000 unit/ Sodium Chloride IV 12.968 units/kg/hr .Q24H ELISEO 11.823 mls/hr Titration Protocol 10.968 UNITS/KG/HR Morphine Sulfate 4 mg 12/10/19 20:05 Morphine Sulfate (Inj) IV Q4HR PRN Severe Pain Naloxone HCl 0.2 mg 12/10/19 20:05 Narcan IV Q2M PRN Opioid Reversal Nitroglycerin 0.4 mg 12/10/19 20:04 Nitrostat SUBLINGUAL Q5M PRN Chest Pain Pantoprazole Sodium 40 mg 12/11/19 07:30 Protonix PO AC-BRKFST ELISEO Temazepam 15 mg 12/10/19 20:22 Restoril PO HS PRN Insomnia Thiamine HCl 100 mg 12/11/19 07:30 Vitamin B-1 PO BID-W/MEALS ELISEO Intake and Output 12/10/19 12/11/19 12/11/19 22:59 06:59 14:59 Intake Total 54.667 Balance 54.667 Intake: Intake, IV Titration 54.667 Amount Heparin Sod,Pork in 0.45% 54.667 NaCl 25,000 unit In 0.45 % NaCl 1 250ml.bag @ 10. 968 UNITS/KG/HR 10 mls/hr IV .Q24H [facility] Rx#: [id number] Other: Weight 91.172 kg 12/11/19 05:21 12/11/19 05:21
[2019-12-11] MEDS: LISINOPRIL 5 MG TAB PO SCH (10:53)
[2019-12-11] MEDS: MORPHINE SULFATE ER 15 MG TABLET PO SCH ×2 (10:53→20:35)
[2019-12-11] MEDS: METOPROLOL TARTRATE 25 MG TAB PO SCH ×2 (10:53→20:34)
[2019-12-11] MEDS: amLODIPine 10 MG TAB PO SCH (10:54)
[2019-12-11] MEDS: PANTOPRAZOLE 40 MG TABLET PO SCH ×2 (10:54→20:41)
[2019-12-11] MEDS: THIAMINE 100 MG TAB PO SCH ×2 (10:54→17:00)
[2019-12-11] MEDS: CITALOPRAM HYDROBROMIDE 20 MG TAB PO SCH (10:54)
[2019-12-11] MEDS: ATORVASTATIN 20 MG TAB PO SCH (10:54)
[2019-12-11] MEDS: LORATADINE 10 MG TAB PO SCH (10:54)
[2019-12-11] MEDS ORDERED: INFLUENZA VACCINE (6 MOS+) 60 MCG/0.5 ML SYRINGE IM ONE (10:57)
[2019-12-11 11:36] LABS: Glucose,Whole Blood 305 mg/dL (75-99)
[2019-12-11] MEDS: INSULIN ASPART (NovoLOG) 100 UNIT/ML VIAL SQ SCH ×3 (12:07→20:28)
[2019-12-11] MEDS ORDERED: PIOGLITAZONE 15 MG TAB PO ONE (15:00)
--- NOTE | 2019-12-11 16:16 | PN ---
PROGRESS NOTE DATE OF SERVICE: 12/11/2019. This 59-year-old gentleman admitted with chest pain has been ruled out for myocardial infarction at this time. Cardiology and Pulmonary are following the patient closely. Interestingly, the patient has multiple members of family, brothers and siblings, affected with pulmonary hypertension. The 2D echo is pending at this time. Chest CTA showed no evidence of pulmonary embolism. EKG showed evidence of some right ventricular strain and prominence. Past medical history reviewed. REVIEW OF SYSTEMS: CARDIOVASCULAR SYSTEM: As mentioned earlier. RESPIRATORY SYSTEM: As mentioned earlier. GI: No nausea, vomiting. : No dysuria or retention. NERVOUS SYSTEM: No numbness, weakness. CURRENT MEDICATIONS: Reviewed. 1. Tylenol 650 q.6 p.r.n. 2. Elizabeth 5 mg p.r.n. 3. Xanax p.r.n. 4. Norvasc 10 mg daily. 5. Aspirin 325 mg daily. 6. Lipitor 20 mg daily. 7. Celexa 20 mg daily. 8. Benadryl p.r.n. 9. Lofibra 54 mg at bedtime. 10.Heparin subcutaneously b.i.d. 11.Heparin IV infusion. 12.Levemir 42 units subcutaneously b.i.d. 13.Zestril 5 mg p.o. daily. 14.Claritin 10 mg daily. 15.Lopressor 25 mg b.i.d. 16.MS Contin 15 mg p.o. b.i.d. 17.Narcan. 18.Nitrostat. 19.Protonix 40 mg b.i.d. 20.Actos 15 mg p.o. daily. 21.Prednisone once. 22.Vitamin B1. 23.Desyrel. PHYSICAL EXAMINATION: Patient is alert and oriented x3. Pulse 98, blood pressure 172/107, respiration 18, temperature 98.1, pulse ox 96% on room air. HEENT: Conjunctivae normal. Oral mucosa moist. NECK: No jugular venous distention. CARDIOVASCULAR SYSTEM: S1, S2 muffled. RESPIRATORY SYSTEM: Breath sounds diminished at the bases. No rhonchi. No crackles. ABDOMEN: Soft, obese, non-tender. No mass palpable. LEGS: No edema. No swelling. NERVOUS SYSTEM: Higher functions as mentioned earlier. Moves all 4 limbs. No focal motor or sensory deficit. LYMPHATICS: No lymph node palpable in neck, axillae or groin. SKIN: No ulcer, rash, bleeding. JOINTS: No active deforming arthropathy. LABS: WBC 12, hemoglobin 15.7. Glucose 337. ASSESSMENT: 1. Chest pain, possible unstable angina. 2. Rule out pulmonary hypertension. 3. 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 4. Diabetes mellitus, type 2, uncontrolled, with hyperglycemia. 5. Hyponatremia. 6. Increased white count. 7. Hyperlipidemia. 8. Hypertension. 9. History of apparent leukemia. 10.History of chronic neck and back pain. 11.History of hernia repair. RECOMMENDATIONS AND DISCUSSION: I recommend to continue current medications, continue with the monitoring, symptomatic treatment. Closely follow with Cardiology. Possible cardiac catheterization in the morning. Closely follow with Pulmonology. Await 2D echo with Doppler. Also recommend hemoglobin A1c evaluation in the morning. Otherwise, we will monitor the Accu-Cheks before meals and at bedtime and perform the coverages at this time. Otherwise, overall prognosis is guarded. Further recommendations to follow. We will resume the home medications, also. Will hold metformin because of the contrast studies. MMODL / IJN: [id number] /
[2019-12-11 16:36] LABS: Glucose,Whole Blood 392 mg/dL (75-99)
--- NOTE | 2019-12-11 19:24 | ECHOF ---
Referral Reason:pulm hypertension- familial MEASUREMENTS -------- HEIGHT: 162.6 cm WEIGHT: 91.2 kg BP: 132/94 RVIDd: 3.0 cm (< 3.3) IVSd: 1.2 cm (0.6 - 1.1) LVIDd: 4.1 cm (3.9 - 5.3) LVPWd: 0.8 cm (0.6 - 1.1) IVSs: 1.5 cm LVIDs: 2.8 cm LVPWs: 1.2 cm LA Diam: 3.4 cm (2.7 - 3.8) LAESV Index (A-L): 19.35 ml/m Ao Diam: 3.3 cm (2.0 - 3.7) AV Cusp: 1.9 cm (1.5 - 2.6) LA Diam: 4.5 cm (2.7 - 3.8) MV EXCURSION: 14.230 mm (> 18.000) MV EF SLOPE: 72 mm/s (70 - 150) EPSS: 0.3 cm MV E Alan: 0.47 m/s MV DecT: 221 ms MV A Alan: 0.98 m/s MV E/A Ratio: 0.48 RAP: 5.00 mmHg RVSP: 13.09 mmHg FINDINGS -------- Sinus rhythm. This was a techncally difficult study with suboptimal views, , Lumason utilized for enhancement of im ages. The left ventricular size is normal. There is mild concentric left ventricular hypertrophy. Overa ll left ventricular systolic function is low-normal with, an EF between 50 - 55 %. The diastolic fi lling pattern is normal for the age of the patient 9.08. Basal Septal Hypokinesis The right ventricle is normal in size. The left atrial size is normal. Normal LA size by volume 22+/-6 ml/m2. The right atrial size is normal. 5.0mg OF Lumason UTLIZED: 2 OR MORE WALL SEGMENTS NOT VISUALIZED. There is mild aortic valve sclerosis. There is no evidence of aortic regurgitation. Mild mitral annular calcification present. Mild mitral regurgitation is present. No regurgitation noted Right ventricular systolic pressure is normal at < 35 mmHg. There is no ev idence of pulmonary hypertension. The pulmonic valve was not well visualized. The aortic root size is normal. There is no pericardial effusion. CONCLUSIONS -------- 1. Sinus rhythm. 2. This was a techncally difficult study with suboptimal views, , Lumason utilized for enhancement of images. 3. The left ventricular size is normal. 4. There is mild concentric left ventricular hypertrophy. 5. Overall left ventricular systolic function is low-normal with, an EF between 50 - 55 %. 6. The diastolic filling pattern is normal for the age of the patient 9.08 7. Basal Septal Hypokinesis 8. The right ventricle is normal in size. 9. The left atrial size is normal. 10. Normal LA size by volume 22+/-6 ml/m2. 11. The right atrial size is normal. 12. 5.0mg OF Lumason UTLIZED: 2 OR MORE WALL SEGMENTS NOT VISUALIZED. 13. There is mild aortic valve sclerosis. 14. Mild mitral annular calcification present. 15. Mild mitral regurgitation is present. 16. No regurgitation noted 17. Right ventricular systolic pressure is normal at < 35 mmHg. 18. There is no evidence of pulmonary hypertension. 19. The pulmonic valve was not well visualized. 20. The aortic root size is normal. 21. There is no pericardial effusion. PHYSICAL DAMAGE APPRAISER: Vandana Andrew RDCS
[2019-12-11 20:15] LABS: Glucose,Whole Blood 319 mg/dL (75-99)
[2019-12-11] MEDS: traZODone HCL 50 MG TAB PO SCH (20:35)
[2019-12-11] MEDS: FENOFIBRATE 54 MG TAB PO SCH (20:36)
[2019-12-11] MEDS: INSULIN DETEMIR (LEVEMIR) 100 UNIT/ML SYR SQ SCH (20:40)
[2019-12-11] MEDS ORDERED: INSULIN DETEMIR (LEVEMIR) 100 UNIT/ML SYR SQ SCH (21:00)
[2019-12-11] MEDS ORDERED: ESCITALOPRAM 10 MG TAB PO SCH (21:00)
[2019-12-11 21:47] LABS: Hemoglobin A1C 12.3 % (4.0-6.0)
[2019-12-12] MEDS ORDERED: diphenhydrAMINE 50 MG CAP PO ONE (06:00)
[2019-12-12] MEDS ORDERED: predniSONE 50 MG TAB PO ONE (06:00)
[2019-12-12] MEDS ORDERED: ASPIRIN 325 MG TAB PO ONE (06:00)
[2019-12-12 06:10] LABS: Basophils # (A) 0.1 k/uL (0-0.2); Basophils % (A) 0 %; Eosinophils % (A) 0 %; HCT 46.8 % (39.0-53.0); HGB 15.3 gm/dL (13.0-17.5); Lymphocytes # (A) 2.2 k/uL (1.0-4.8); Lymphocytes % (A) 16 %; MCH 29.6 pg (25.0-35.0); MCHC 32.7 g/dL (31.0-37.0); MCV 90.4 fL (80.0-100.0); Monocytes # (A) 0.5 k/uL (0-1.0); Monocytes % (A) 4 %; Neutrophils # (A) 11.1 k/uL (1.3-7.7); Neutrophils % (A) 80 %; Platelet Count 284 k/uL (150-450); RBC 5.18 m/uL (4.30-5.90); RDW 13.4 % (11.5-15.5); WBC 13.9 k/uL (3.8-10.6)
[2019-12-12] MEDS: MORPHINE SULFATE ER 15 MG TABLET PO SCH ×2 (06:21→20:45)
[2019-12-12] MEDS: THIAMINE 100 MG TAB PO SCH ×2 (06:22→16:42)
[2019-12-12] MEDS: ATORVASTATIN 20 MG TAB PO SCH (06:22)
[2019-12-12] MEDS: LISINOPRIL 5 MG TAB PO SCH (06:22)
[2019-12-12] MEDS: CITALOPRAM HYDROBROMIDE 20 MG TAB PO SCH (06:22)
[2019-12-12] MEDS: LORATADINE 10 MG TAB PO SCH (06:22)
[2019-12-12] MEDS: amLODIPine 10 MG TAB PO SCH (06:23)
[2019-12-12] MEDS: METOPROLOL TARTRATE 25 MG TAB PO SCH ×2 (06:23→20:45)
[2019-12-12] MEDS: PANTOPRAZOLE 40 MG TABLET PO SCH ×2 (06:23→16:42)
[2019-12-12 06:40] LABS: Glucose,Whole Blood 219 mg/dL (75-99)
[2019-12-12 06:44] LABS: African American GFR (CKD) >90 (>60 ml/min/1.73 sqM); Anion Gap 17 mmol/L; Blood Urea Nitrogen 24 mg/dL (9-20); Calcium 9.6 mg/dL (8.4-10.2); Carbon Dioxide 18 mmol/L (22-30); Chloride 104 mmol/L (98-107); Glucose 252 mg/dL (74-99); Non-African American GFR(CKD) >90 (>60 ml/min/1.73 sqM); Potassium 4.7 mmol/L (3.5-5.1); Sodium 139 mmol/L (137-145)
[2019-12-12] MEDS: HEPARIN SOD,PORK IN 0.45% NACL 25,000 UNIT in 0.45% NACL 1 250ML.BAG IV SCH (08:06)
[2019-12-12] MEDS ORDERED: ASPIRIN 325 MG TAB PO SCH (09:00)
[2019-12-12] MEDS: INSULIN ASPART (NovoLOG) 100 UNIT/ML VIAL SQ SCH ×4 (10:27→20:46)
[2019-12-12] MEDS: PIOGLITAZONE 30 MG TAB PO SCH (10:27)
[2019-12-12] MEDS ORDERED: IV FLUID CONTINUATION 700 ML IV ONE (10:55)
[2019-12-12] MEDS ORDERED: fentaNYL (PF) 50 MCG/ML 2 ML AMP IV ONE (11:16)
[2019-12-12] MEDS ORDERED: MIDAZOLAM 2 MG/2 ML VIAL IVP ONE (11:16)
[2019-12-12] MEDS ORDERED: LIDOCAINE 1% INJ 10MG/ML (20 ML MDV) SQ ONE (11:18)
[2019-12-12] MEDS ORDERED: VERAPAMIL SYRINGE (5 MG/10 ML) INTRAARTER ONE (11:20)
[2019-12-12] MEDS: HEPARIN SODIUM 1,000 UN/ML (10ML VL) IV ONE ×2 (11:22→11:59)
[2019-12-12] MEDS ORDERED: PRASUGREL 10 MG TAB ONE (12:00)
--- NOTE | 2019-12-12 12:00 | P.CARDCATH ---
Date of Procedure: 12/12/19 Preoperative Diagnosis: Unstable angina Postoperative Diagnosis: Diffuse coronary artery disease with a critical lesion in the OM branch and moderate disease in the proximal LAD intermediate and diagonal branches. Mild diffuse disease involving the RCA Description of Procedure: HISTORY: This is a 59-year-old male with a strong family history of ischemic heart disease who was admitted to the hospital with exertional chest tightness suggestive of crescendo angina. Patient is advised to have a cardiac catheterization for definitive diagnosis. CONSENT:I have discussed the risks, benefits and alternative therapies for the above-mentioned procedure and for both sedation/analgesia as well as necessary blood product administration, if indicated, as they pertain to this patient. The patient has indicated understanding and acceptance of the risks and procedures discussed. PROCEDURE: Patient was brought to the lab in a fasting state. Patient was given some IV sedation. The right wrist is infiltrated with lidocaine and right femoral artery was entered using Seldinger technique. A 6-Welsh catheter was left in place and selective coronary arteriography was performed. Patient tolerated the procedure well. TR band was applied for hemostasis. No immediate complications were noted and patient was transferred to [facility] in a stable condition Conscious Sedation: Versed 1mg Fentanyl 50 g Duration 19minutes HEMODYNAMICS: The aortic pressure is 120/74. Left ventricular end-diastolic pressure is about 12-16. There was no gradient across the aortic valve SELECTIVE CORONARY ARTERIOGRAPHY: LEFT MAIN: Normal length Evidence of calcification THE LEFT ANTERIOR DESCENDING CORONARY ARTERY: This is a good caliber vessel with a diffuse calcification involving the proximal and midportion. There is about 50% stenosis of the proximal LAD which seemed slightly eccentric. The first diagonal also has diffuse disease. THE INTERMEDIATE CORONARY ARTERY: This is a moderate caliber vessel with diffuse calcification and diffuse disease THE LEFT CIRCUMFLEX AND IS CORONARY ARTERY: This is a good caliber vessel giving rise good-sized OM branch. The OM branch is about 70-80% stenosis THE RIGHT CORONARY ARTERY:, Nondominant vessel with mild diffuse disease LEFT VENTRICULOGRAPHY: Not performed FINAL IMPRESSION: Diffuse coronary artery disease with critical lesion involving the OM branch and intermediate disease involving the LAD and intermediate disease involving the ramus intermedius PLAN: Stent placement of the OM branch. Subsequently we'll make consider doing a stress test to see if there is ischemia in the LAD distribution PROGNOSIS: Fair
[2019-12-12] MEDS ORDERED: PRASUGREL 10 MG TAB PO ONE (12:04)
[2019-12-12] MEDS ORDERED: HEPARIN SODIUM 1,000 UN/ML (10ML VL) ONE (12:06)
[2019-12-12] MEDS ORDERED: HEPARIN SODIUM 1,000 UN/ML (10ML VL) IV ONE (12:07)
[2019-12-12] MEDS ORDERED: NITROGLYCERIN 1000MCG/10ML SYRINGE INTRACORON ONE (12:12)
--- NOTE | 2019-12-12 12:12 | P.PN ---
Subjective Progress Note Date: 12/12/19 On 12/12/2019 the patient is being seen for a follow-up. This morning, he denies having any chest pain. No shortness of breath. No pleurisy. No hemoptysis. As mentioned earlier, the plan was to undergo the cataract catheterization. I saw the report of the cardiac catheterization that was done. The patient was taken to cardiac catheterization. The patient was found to have diffuse coronary artery disease with critical lesion involving the OM branch an intermediate disease involving the LAD and intermediate disease involving the ramus intermedius. There was recommended to undergo stenting of the OM branch. Objective - Vital Signs Vital signs: Vital Signs Temp 97.8 F 12/12/19 07:00 Pulse 70 12/12/19 07:00 Resp 18 12/12/19 07:00 BP 118/70 12/12/19 07:00 Pulse Ox 96 12/12/19 07:00 Intake & Output 12/11/19 12/12/19 12/12/19 18:59 06:59 18:59 Intake Total 420 Output Total 240 Balance 420 -240 Weight 91.172 kg 88.5 kg Intake: Oral 420 Output: Urine 240 Other: Voiding Method Toilet Toilet Toilet # Voids 1 1 - Exam The patient appeared well nourished and normally developed. Vital signs as documented. Head exam is unremarkable. No scleral icterus or corneal arcus noted. Neck is without jugular venous distension, thyromegaly, or carotid bruits. Carotid upstrokes are brisk bilaterally. Lungs are clear to auscultation and percussion. Cardiac exam reveals the PMI to be normally sized and situated. Rhythm is regular. First and second heart sounds normal. No murmurs, rubs or gallops. Abdominal exam reveals normal bowel sounds, no masses, no organomegaly and no aortic enlargement. Extremities are nonedematous and both femoral and pedal pulses are normal.Examination of the skin revealed no evidence of significant rashes, suspicious appearing nevi or other concerning lesions. Neurologically awake and alert and there is no focal neurological deficits. - Labs CBC & Chem 7: 12/12/19 05:42 12/12/19 05:42 Labs: Abnormal Lab Results - Last 24 Hours (Table) 12/10/19 12/11/19 12/11/19 Range/Units 16:54 16:34 20:12 WBC (3.8-10.6) k/uL Neutrophils # (1.3-7.7) k/uL APTT (22.0-30.0) sec Carbon Dioxide (22-30) mmol/L BUN (9-20) mg/dL Glucose (74-99) mg/dL POC Glucose (mg/dL) 392 H 319 H (75-99) mg/dL Hemoglobin A1c 12.3 H (4.0-6.0) % 12/12/19 12/12/19 12/12/19 Range/Units 05:42 05:42 05:42 WBC 13.9 H (3.8-10.6) k/uL Neutrophils # 11.1 H (1.3-7.7) k/uL APTT 47.6 H (22.0-30.0) sec Carbon Dioxide 18 L (22-30) mmol/L BUN 24 H (9-20) mg/dL Glucose 252 H (74-99) mg/dL POC Glucose (mg/dL) (75-99) mg/dL Hemoglobin A1c (4.0-6.0) % 12/12/19 Range/Units 06:38 WBC (3.8-10.6) k/uL Neutrophils # (1.3-7.7) k/uL APTT (22.0-30.0) sec Carbon Dioxide (22-30) mmol/L BUN (9-20) mg/dL Glucose (74-99) mg/dL POC Glucose (mg/dL) 219 H (75-99) mg/dL Hemoglobin A1c (4.0-6.0) % Assessment and Plan Plan: 1 atypical chest pain currently under investigation. Troponin times she has been negative. EKG showing sinus rhythm with some voltage criteria of LVH and nonspecific T-wave changes in the inferior leads. The chest x-ray is within normal. CT angiogram is within normal. Nevertheless, the patient has multiple risk factors for CAD including diabetes hypertension hyperlipidemia and he claims to have had a myocardial infarction at the age of 33. This warrants further investigation, possibly a cardiac stress test and an angiogram and later stage. Also, he has strong family history for primary pulmonary hypertension and coronary artery disease. 2 diabetes mellitus maintained on Lantus 3 hypertension 4 hyperlipidemia 5 known history of COPD 6 obesity with a BMI of 34 7 lifetime nonsmoker 8 questionable history of CLL versus hematologic disorder effecting his platelet counts. Current hematologic profile is within normal. Skin Dr. Wheat in the past Plan Pulmonary status is stable Catheterization was done and showed disease including a tight lesion in the OM branch and the patient is being considered for stent The echocardiogram was also noted and the patient has a normal leftejection fraction with an ejection fraction of 50-55%. No significant valvular abnormalities. No significant pulmonary hypertension. We'll continue to follow.
[2019-12-12] MEDS ORDERED: IOPAMIDOL-370 125ML BTL INJ ONE (12:15)
[2019-12-12] MEDS ORDERED: IOPAMIDOL-250 100ML BTL INTRAARTER ONE (12:30)
[2019-12-12] MEDS ORDERED: ZOLPIDEM 5 MG TAB PO PRN (12:35)
[2019-12-12] MEDS ORDERED: ATROPINE SULFATE 0.1 MG/ML 10ML SYRINGE IV PRN (12:35)
[2019-12-12] MEDS ORDERED: NITROGLYCERIN SL TABS 0.4 MG TAB SUBLINGUAL PRN (12:35)
[2019-12-12] MEDS ORDERED: RX INFO: IV CONTRAST WAS GIVEN 1 EACH MISC MISCELLANE PRN (12:35)
[2019-12-12] MEDS ORDERED: MAG HYDROX/AL HYDROX/SIMETH 30 ML CUP PO PRN (12:35)
[2019-12-12] MEDS ORDERED: SODIUM CHLORIDE 0.9% 1,000 ML IV SCH (12:45)
--- NOTE | 2019-12-12 12:58 | PTCA ---
PERCUTANEOUSTRANS CORORONARY ANGIOGRAPHY Mr. Gould is a 59-year-old male with known history of diabetes, family history of premature coronary disease who presented with symptoms of angina pectoris. He underwent cardiac catheterization by Dr. Guajardo and was found to have critical stenosis involving the first obtuse marginal branch. In view of that, recommendation was made regarding angioplasty and stenting. The procedure as well as the risks and the complications were discussed with the patient who is in full understanding and agreement. PROCEDURE: A 6-Nigerian EBU 3.75 guiding catheter introduced in the system. After cannulating the left main, a 0.014 balanced medium weight J-wire was advanced across the lesion positioned distally then a 2.75 x 12 mm TREK balloon was advanced one inflation at 8 atmospheres was done. Following that, the balloon was removed and a 3.25 x 15 mm Xience Yeimy stent was deployed, postdilated at 16 atmospheres. After the last inflation, after appropriate wait, the balloon and the guidewire were withdrawn back in the guiding catheter. Images were obtained, repeated. Those images reveal stable successful stenting. At that point, the guiding catheter, the balloon and the guidewire were removed. The sheath was removed. Hemostasis was obtained with deployment of a TR band. There was no immediate complication. Patient was returned to his room in stable condition. Of note, the patient received a total of 10,000 units of intravenous heparin throughout the procedure as well as oral loading dose of Effient. His ACT was monitored. He had chest discomfort, but no EKG changes. RESULTS: Successful stenting of the first obtuse marginal branch with reduction of stenosis from 80% to 0%. RECOMMENDATION: Patient will be continued on aspirin, Effient, beta blockers, YANY inhibitor and statin. The importance of dual antiplatelet treatment were discussed with the patient and he is in full understanding and agreement. Duration of procedure is 24 minutes. MMODL / IJN: [id number] /
--- NOTE | 2019-12-12 13:04 | LTR ---
December 12, 2019 Re: Minh Gould Dear Dr. Mars: I had the opportunity to perform coronary angioplasty and stenting on Mr. Gould at [facility] on the 12 of December and a full copy of the procedure note will be forwarded to you. In brief, he found to have significant obstructive disease involving the first obtuse marginal branch and underwent successful stenting of that vessel using drug-eluting stent. I will keep you updated on his progress and thank you again for allowing me the opportunity to participate in his care. Please feel free to call for any questions. Sincerely yours, MD MASON Tanner / EMILIANO: [phone] /
[2019-12-12] MEDS ORDERED: SODIUM CHLORIDE 0.9% 1,000 ML IV ONE (14:00)
[2019-12-12 14:18] LABS: Cholesterol 234 mg/dL (<200); HDL Cholesterol 74 mg/dL (40-60); LDL Cholesterol,Calculated 138 mg/dL (0-99); Triglycerides 110 mg/dL (<150)
[2019-12-12 14:32] VITALS: BMI 33.5
[2019-12-12 16:16] LABS: Glucose,Whole Blood 284 mg/dL (75-99)
[2019-12-12 16:41] LABS: Glucose,Whole Blood 284 mg/dL (75-99)
--- NOTE | 2019-12-12 19:24 | P.PN ---
Progress Note - Text Progress Note Date: 12/12/19 Presenting complaint: Chest pain Interval history: Patient of Dr. Mars. Patient admitted with chest pain. Chronic stable medical conditions include diabetes, GERD, hypertension, hyperlipidemia, osteoarthritis, CLL, peripheral neuropathy, chronic cervical and low back pain. Admitted with chest pain. Troponins were negative. Diagnosed with unstable angina. Today-underwent cardiac catheterization-underwent stent to the obtuse marginal branch. Postprocedure laying in at. Comfortable. No chest pain or shortness of breath. Review of systems: Was done for constitutional, cardiovascular, GI, pulmonary. relevant finding as above On examination: VITAL SIGNS: Afebrile, 72, 18, 136/77, 98% on room air GENERAL APPEARANCE: BMI 33.5, laying in bed awake comfortable HEENT: Normal external appearance of nose and ear. Oral cavity normal EYES: Pupils equal. Conjunctiva normal. NECK: JVD not raised. Mass not palpable. RESPIRATORY: Respiratory effort normal. Lungs clear to auscultation. CARDIOVASCULAR: First and second sounds normal. No edema. ABDOMEN: Soft. Liver and spleen not palpable. No tenderness. No mass palpable. PSYCHIATRY: Alert and oriented x3. Mood and affect normal. INVESTIGATIONS, reviewed in the clinical context: White count 13.9 hemoglobin 15.3 potassium 4.7 creatinine 0.83 LDL 138 [id number], Previous testin-D echo-EF 50-55% somewhat emotional abnormality. Chest CTA-possible hepatic steatosis Chest x-ray-clear Assessment: -Unstable angina, POA -Coronary artery disease with angioplasty stent to obtuse marginal branch -Diabetes mellitus type 2, chronically insulin, uncontrolled with hyperglycaemia -GERD -Hyperlipidemia -Essential hypertension -CLL -Diabetic peripheral neuropathy -Chronic cervical and low back pain -Depression otherwise specified Plan: Patient is stable following procedure. Current medications include aspirin, Lipitor, insulin, Lopressor, Effient. Patient is being followed by cardiology.
--- NOTE | 2019-12-12 19:26 | CT ---
EXAMINATION TYPE: CT brain wo con DATE OF EXAM: 12/12/2019 COMPARISON: None HISTORY: Altered mental status. CT DLP: 1152.4 mGycm Automated exposure control for dose reduction was used. Multiple axial sections were obtained of the brain without contrast. There is cerebral cortical atrophy. There is no mass effect nor midline shift. There is no sign of in tracranial hemorrhage. Calvarium is intact. There is no evidence of cerebral edema. Impression new graft cerebral atrophy. No acute intracranial abnormality.
[2019-12-12 20:39] LABS: Glucose,Whole Blood 232 mg/dL (75-99)
[2019-12-12] MEDS: traZODone HCL 50 MG TAB PO SCH (20:45)
[2019-12-12] MEDS: FENOFIBRATE 54 MG TAB PO SCH (21:16)
[2019-12-12] MEDS: INSULIN DETEMIR (LEVEMIR) 100 UNIT/ML SYR SQ SCH (21:16)
[2019-12-13 05:54] LABS: Glucose,Whole Blood 134 mg/dL (75-99)
[2019-12-13] MEDS: INSULIN ASPART (NovoLOG) 100 UNIT/ML VIAL SQ SCH ×4 (05:57→22:00)
[2019-12-13] MEDS: THIAMINE 100 MG TAB PO SCH ×2 (06:12→17:41)
[2019-12-13] MEDS: PANTOPRAZOLE 40 MG TABLET PO SCH ×2 (06:12→17:41)
[2019-12-13 07:10] LABS: Basophils % (A) 0 %; Eosinophils % (A) 0 %; HCT 42.8 % (39.0-53.0); HGB 13.9 gm/dL (13.0-17.5); Lymphocytes # (A) 4.3 k/uL (1.0-4.8); Lymphocytes % (A) 41 %; MCHC 32.4 g/dL (31.0-37.0); MCV 89.4 fL (80.0-100.0); Mean Platelet Volume 7.9; Monocytes # (A) 0.6 k/uL (0-1.0); Monocytes % (A) 6 %; Neutrophils # (A) 5.2 k/uL (1.3-7.7); Neutrophils % (A) 50 %; Platelet Count 206 k/uL (150-450); RBC 4.79 m/uL (4.30-5.90); RDW 13.4 % (11.5-15.5); WBC 10.4 k/uL (3.8-10.6)
[2019-12-13 07:21] LABS: African American GFR (CKD) >90 (>60 ml/min/1.73 sqM); Anion Gap 8 mmol/L; Blood Urea Nitrogen 20 mg/dL (9-20); Calcium 9.1 mg/dL (8.4-10.2); Carbon Dioxide 24 mmol/L (22-30); Chloride 106 mmol/L (98-107); Glucose 128 mg/dL (74-99); Non-African American GFR(CKD) >90 (>60 ml/min/1.73 sqM); Potassium 3.7 mmol/L (3.5-5.1); Sodium 138 mmol/L (137-145)
[2019-12-13] MEDS: ASPIRIN 81 MG PO SCH (09:38)
[2019-12-13] MEDS: CITALOPRAM HYDROBROMIDE 20 MG TAB PO SCH (09:38)
[2019-12-13] MEDS: ATORVASTATIN 40 MG TAB PO SCH (09:38)
[2019-12-13] MEDS: LISINOPRIL 5 MG TAB PO SCH (09:38)
[2019-12-13] MEDS: amLODIPine 10 MG TAB PO SCH (09:38)
[2019-12-13] MEDS: MORPHINE SULFATE ER 15 MG TABLET PO SCH ×2 (09:39→22:01)
[2019-12-13] MEDS: METOPROLOL TARTRATE 50 MG TAB PO SCH ×2 (09:39→22:01)
[2019-12-13] MEDS: LORATADINE 10 MG TAB PO SCH (09:39)
[2019-12-13] MEDS: PIOGLITAZONE 30 MG TAB PO SCH (09:39)
--- NOTE | 2019-12-13 10:52 | P.PN ---
Subjective Progress Note Date: 12/13/19 This is a pleasant 59-year-old male past medical history significant for hypertension, dyslipidemia, diabetes mellitus and chronic pain, presented to the hospital with symptoms of chest discomfort. He was taken to the cardiac catheterization lab by Dr. Guajardo, was found to have diffuse coronary artery disease with a critical lesion involving the OM branch and intermediate disease involving the LAD and intermediate disease involving the ramus intermediate. Subsequently patient underwent stenting of the OM. Last evening patient had an episode of confusion, he underwent a CAT scan of the brain which did not reveal any acute abnormality. Blood pressure 136/80 with a heart rate in the 70s, 96% on room air. White blood cell count 10.4, hemoglobin 13.9, platelet count 206. Sodium 138, potassium 3.7, BUN 20, creatinine 0.7. This morning patient feels well, he's alert and oriented 3, he's been up ambulating without any difficulty. Objective - Vital Signs Vital signs: Vital Signs Temp 97.8 F 12/13/19 08:32 Pulse 90 12/13/19 08:32 Resp 20 12/13/19 08:32 BP 153/70 12/13/19 08:32 Pulse Ox 96 12/13/19 04:00 Intake & Output 12/12/19 12/13/19 12/13/19 18:59 06:59 18:59 Intake Total 1140 440 420 Output Total 200 Balance 1140 240 420 Weight 88.5 kg 88 kg Intake: IV 900 200 Sodium Chloride 0.9% 1, 0 200 000 ml @ 100 mls/hr IV . Q10H [facility] Rx#:[id number] Oral 240 240 420 Output: Urine 200 Other: Voiding Method Toilet Toilet # Voids 1 2 - Exam CONSTITUTIONAL: No apparent distress. HEENT: Head is normocephalic. Pupils are equal, round. Sclerae anicteric. Mucous membranes of the mouth are moist. No JVD. No carotid bruit. CHEST EXAMINATION: Lungs are clear to auscultation. No chest wall tenderness is noted on palpation or with deep breathing. HEART EXAMINATION: Regular rate and rhythm. S1, S2 heard. No murmurs, gallops or rub. ABDOMEN: Soft, nontender. Positive bowel sounds. EXTREMITIES: 2+ peripheral pulses, no lower extremity edema and no calf tenderness. Right radial site is clean and dry, good distal pulse. NEUROLOGIC EXAMINATION: Patient is awake, alert and oriented x3. - Labs CBC & Chem 7: 12/13/19 06:27 12/13/19 06:27 Labs: Abnormal Lab Results - Last 24 Hours (Table) 12/12/19 12/12/19 12/12/19 Range/Units 05:42 16:04 16:38 Glucose (74-99) mg/dL POC Glucose (mg/dL) 284 H 284 H (75-99) mg/dL Cholesterol 234 H (<200) mg/dL LDL Cholesterol, Calc 138 H (0-99) mg/dL HDL Cholesterol 74 H (40-60) mg/dL 12/12/19 12/13/19 12/13/19 Range/Units 20:38 05:52 06:27 Glucose 128 H (74-99) mg/dL POC Glucose (mg/dL) 232 H 134 H (75-99) mg/dL Cholesterol (<200) mg/dL LDL Cholesterol, Calc (0-99) mg/dL HDL Cholesterol (40-60) mg/dL Assessment and Plan Plan: Assessment and plan #1 Unstable angina status post cardiac catheterization with subsequent stenting of the OM branch, patient also has intermediate disease involving the LAD and ramus intermediate #2 Leukocytosis #3 Hypertension #4 Dyslipidemia #5Diabetes mellitus Plan Patient did have an episode of confusion yesterday afternoon, his CT of the brain was negative, back to himself this morning, alert and oriented 3. He may be able to be discharged home today from cardiology's perspective on dual antiplatelet therapy. We'll make him a follow-up appointment to see Dr. Guajardo in the office post discharge. DNP note has been reviewed, I agree with a documented findings and plan of care. Patient was seen and examined.
[2019-12-13 11:38] LABS: Glucose,Whole Blood 161 mg/dL (75-99)
[2019-12-13] MEDS: PRASUGREL 10 MG TAB PO SCH (12:35)
--- NOTE | 2019-12-13 12:35 | P.PN ---
Subjective Progress Note Date: 12/13/19 On today's evaluation of 12/13/2019 the patient is feeling well. Overnight he had a bout of confusion and for that reason a CAT scan of the brain was done and showed no acute abnormalities replete. The patient is back to his normal state. No focal neurological deficit. No headaches. No fever. No chills. No chest pain is emanating. He underwent his cardiac catheterization with stenting of the OM branch without any difficulties. No other complaints otherwise for now. Cardiology is on the case. Objective - Vital Signs Vital signs: Vital Signs Temp 97.6 F 12/13/19 12:00 Pulse 75 12/13/19 12:00 Resp 17 12/13/19 12:00 BP 149/96 12/13/19 12:00 Pulse Ox 95 12/13/19 12:00 Intake & Output 12/12/19 12/13/19 12/13/19 18:59 06:59 18:59 Intake Total 1140 440 420 Output Total 200 Balance 1140 240 420 Weight 88.5 kg 88 kg Intake: IV 900 200 Sodium Chloride 0.9% 1, 0 200 000 ml @ 100 mls/hr IV . Q10H [facility] Rx#:[id number] Oral 240 240 420 Output: Urine 200 Other: Voiding Method Toilet Toilet Toilet # Voids 1 2 - Exam The patient appeared well nourished and normally developed. Vital signs as documented. Head exam is unremarkable. No scleral icterus or corneal arcus noted. Neck is without jugular venous distension, thyromegaly, or carotid bruits. Carotid upstrokes are brisk bilaterally. Lungs are clear to auscultation and percussion. Cardiac exam reveals the PMI to be normally sized and situated. Rhythm is regular. First and second heart sounds normal. No murmurs, rubs or gallops. Abdominal exam reveals normal bowel sounds, no masses, no organomegaly and no aortic enlargement. Extremities are nonedematous and both femoral and pedal pulses are normal.Examination of the skin revealed no evidence of significant rashes, suspicious appearing nevi or other concerning lesions. Neurologically awake and alert and there is no focal neurological deficits. - Labs CBC & Chem 7: 12/13/19 06:27 12/13/19 06:27 Labs: Abnormal Lab Results - Last 24 Hours (Table) 12/12/19 12/12/19 12/12/19 Range/Units 05:42 16:04 16:38 Glucose (74-99) mg/dL POC Glucose (mg/dL) 284 H 284 H (75-99) mg/dL Cholesterol 234 H (<200) mg/dL LDL Cholesterol, Calc 138 H (0-99) mg/dL HDL Cholesterol 74 H (40-60) mg/dL 12/12/19 12/13/19 12/13/19 Range/Units 20:38 05:52 06:27 Glucose 128 H (74-99) mg/dL POC Glucose (mg/dL) 232 H 134 H (75-99) mg/dL Cholesterol (<200) mg/dL LDL Cholesterol, Calc (0-99) mg/dL HDL Cholesterol (40-60) mg/dL 12/13/19 Range/Units 11:36 Glucose (74-99) mg/dL POC Glucose (mg/dL) 161 H (75-99) mg/dL Cholesterol (<200) mg/dL LDL Cholesterol, Calc (0-99) mg/dL HDL Cholesterol (40-60) mg/dL Assessment and Plan Plan: 1 atypical chest pain currently under investigation. Troponin times she has been negative. EKG showing sinus rhythm with some voltage criteria of LVH and nonspecific T-wave changes in the inferior leads. The chest x-ray is within normal. CT angiogram is within normal. Nevertheless, the patient has multiple risk factors for CAD including diabetes hypertension hyperlipidemia and he claims to have had a myocardial infarction at the age of 33. The patient underwent cardiac catheterization and stenting of the OM branch without any complications. 2 diabetes mellitus maintained on Lantus 3 hypertension 4 hyperlipidemia 5 known history of COPD 6 obesity with a BMI of 34 7 lifetime nonsmoker 8 questionable history of CLL versus hematologic disorder effecting his platelet counts. Current hematologic profile is within normal. Skin Dr. Wheat in the past 9 brief altered mentation, recovered. Could be drug effect. CAT scan of the brain is negative. Plan Pulmonary status is stable Catheterization was done and showed disease including a tight lesion in the OM branch and the patient had appropriate stenting The echocardiogram was also noted and the patient has a normal leftejection fraction with an ejection fraction of 50-55%. No significant valvular abnormalities. No significant pulmonary hypertension. The patient is ambulating. No altered mentation. No active pulmonary issues. We'll sign off the case.
[2019-12-13 16:31] LABS: Glucose,Whole Blood 186 mg/dL (75-99)
--- NOTE | 2019-12-13 19:19 | P.PN ---
Progress Note - Text Progress Note Date: 12/13/19 Presenting complaint: Chest pain Interval history: Patient of Dr. Mars. Patient admitted with chest pain. Chronic stable medical conditions include diabetes, GERD, hypertension, hyperlipidemia, osteoarthritis, CLL, peripheral neuropathy, chronic cervical and low back pain. Troponins were negative. Diagnosed with unstable angina.cardiac catheterization-underwent stent to the obtuse marginal branch Today-yesterday evening, Patient became acutely confused. Did order computed tomography scan of the brain. Negative. Bowie to be acute delirium. Patient does state that he sleeps very poorly. Normally wakes up every hour. Patient also takes morphine for chronic low back pain. No chest pain or shortness of breath. Has been up about in the hallway. Patient's daughter and son are present. Review of systems: Was done for constitutional, cardiovascular, GI, pulmonary. relevant finding as above Active Medications Acetaminophen (Tylenol Tab) 650 mg PO Q6HR PRN PRN Reason: Mild Pain or Fever > 100.5 Last Admin: 12/12/19 18:04 Dose: 650 mg Documented by: Hydrocodone Bitart/Acetaminophen ([place] 5-325) 1 each PO Q6HR PRN PRN Reason: Pain Al Hydroxide/Mg Hydroxide (Maalox) 30 ml PO Q4HR PRN PRN Reason: Heartburn Alprazolam (Xanax) 0.25 mg PO TID PRN PRN Reason: Anxiety Amlodipine Besylate (Norvasc) 10 mg PO DAILY [facility] Last Admin: 12/13/19 09:38 Dose: 10 mg Documented by: Aspirin (Aspirin) 81 mg PO DAILY [facility] Last Admin: 12/13/19 09:38 Dose: 81 mg Documented by: Atorvastatin Calcium (Lipitor) 40 mg PO DAILY [facility] Last Admin: 12/13/19 09:38 Dose: 40 mg Documented by: Atropine Sulfate (Atropine) 0.5 mg IV ONCE PRN PRN Reason: Symptomatic Bradycardia Citalopram Hydrobromide (Celexa) 20 mg PO DAILY [facility] Last Admin: 12/13/19 09:38 Dose: 20 mg Documented by: Fenofibrate (Lofibra) 54 mg PO HS [facility] Last Admin: 12/12/19 21:16 Dose: Not Given Documented by: Insulin Aspart (Novolog) 0 unit SQ [facility]; Protocol Last Admin: 01/30/20 17:41 Dose: 2 unit Documented by: Insulin Detemir (Levemir) [address] [facility] Last Admin: 12/12/19 21:16 Dose: 40 unit Documented by: Lisinopril (Zestril) 5 mg PO DAILY [facility] Last Admin: 12/13/19 09:38 Dose: 5 mg Documented by: Melatonin (Melatonin) [address] [facility] Metoprolol Tartrate (Lopressor) 50 mg PO BID [facility] Last Admin: 12/13/19 09:39 Dose: 50 mg Documented by: Miscellaneous Information (Rx Info: Iv Contrast Was Given) 1 each MISCELLANE DAILY PRN PRN Reason: Per Protocol Stop: 12/14/19 12:35 Morphine Sulfate (Ms Contin) 15 mg PO BID [facility] Last Admin: 12/13/19 09:39 Dose: 15 mg Documented by: Naloxone HCl (Narcan) 0.2 mg IV Q2M PRN PRN Reason: Opioid Reversal Nitroglycerin (Nitrostat) 0.4 mg SUBLINGUAL Q5M PRN PRN Reason: Chest Pain Pantoprazole Sodium (Protonix) 40 mg PO AC-BID [facility] Last Admin: 12/13/19 17:41 Dose: 40 mg Documented by: Pioglitazone HCl (Actos) 30 mg PO DAILY [facility] Last Admin: 12/13/19 09:39 Dose: 30 mg Documented by: Prasugrel (Effient) 10 mg PO DAILY [facility] Last Admin: 12/13/19 12:35 Dose: 10 mg Documented by: Thiamine HCl (Vitamin B-1) 100 mg PO BID-W/MEALS [facility] Last Admin: 12/13/19 17:41 Dose: 100 mg Documented by: Trazodone HCl (Desyrel) 50 mg PO HS [facility] Last Admin: 12/12/19 20:45 Dose: 50 mg Documented by: Zolpidem Tartrate (Ambien) 5 mg PO HS PRN PRN Reason: Insomnia On examination: VITAL SIGNS: 97.6, 75, 17, 149/96, 95% room air GENERAL APPEARANCE: Sitting up in bed, comfortable HEENT: Normal external appearance of nose and ear. Oral cavity normal EYES: Pupils equal. Conjunctiva normal. NECK: JVD not raised. Mass not palpable. RESPIRATORY: Respiratory effort normal. Lungs clear to auscultation. CARDIOVASCULAR: First and second sounds normal. No edema. ABDOMEN: Soft. Liver and spleen not palpable. No tenderness. No mass palpable. PSYCHIATRY: Alert and oriented x3. Mood and affect normal. INVESTIGATIONS, reviewed in the clinical context: White count 10.4 hemoglobin 13.9 creatinine 0.79 Previous testin-D echo-EF 50-55% somewhat emotional abnormality. Chest CTA-possible hepatic steatosis Chest x-ray-clear LDL 138 Assessment: -Unstable angina, POA -Coronary artery disease with angioplasty stent to obtuse marginal branch -Diabetes mellitus type 2, chronically insulin, uncontrolled with hyperglycaemia -Acute delirium, multifactorial improved -Chronic sleep deprivation and poor sleep hygiene -GERD -Hyperlipidemia -Essential hypertension -CLL -Diabetic peripheral neuropathy -Chronic cervical and low back pain -Depression otherwise specified Plan: Had a lengthy talk with the patient and family including her daughter. Did explain the concept of the delirium. Patient has very poor sleep hygiene. We'll DC the Claritin also DC the Zestril. Postop the patient melatonin. Also talked about alternative pain control mechanism including pete chi, acupuncture m indfulness etc. Did advise to start slowly cut back back on morphine with help from his family doctor. Total time spent today was about 40 minutes with over 25 minutes of discussion.
[2019-12-13 20:33] LABS: Glucose,Whole Blood 212 mg/dL (75-99)
[2019-12-13] MEDS ORDERED: MELATONIN 3 MG TABLET PO SCH (21:00)
[2019-12-13] MEDS: INSULIN DETEMIR (LEVEMIR) 100 UNIT/ML SYR SQ SCH (22:00)
[2019-12-13] MEDS: FENOFIBRATE 54 MG TAB PO SCH (22:01)
[2019-12-13] MEDS: traZODone HCL 50 MG TAB PO SCH (22:01)
[2019-12-14 06:34] LABS: Glucose,Whole Blood 153 mg/dL (75-99)
[2019-12-14] MEDS: THIAMINE 100 MG TAB PO SCH (06:43)
[2019-12-14] MEDS: PANTOPRAZOLE 40 MG TABLET PO SCH (06:43)
[2019-12-14 07:08] VITALS: BP 153/72; RESP 16; TEMP 97.4
[2019-12-14] MEDS: INSULIN ASPART (NovoLOG) 100 UNIT/ML VIAL SQ SCH ×2 (07:14→12:28)
[2019-12-14] MEDS: amLODIPine 10 MG TAB PO SCH (09:13)
[2019-12-14] MEDS: ATORVASTATIN 40 MG TAB PO SCH (09:13)
[2019-12-14] MEDS: ASPIRIN 81 MG PO SCH (09:13)
[2019-12-14] MEDS: LISINOPRIL 5 MG TAB PO SCH (09:13)
[2019-12-14] MEDS: PIOGLITAZONE 30 MG TAB PO SCH (09:13)
[2019-12-14] MEDS: CITALOPRAM HYDROBROMIDE 20 MG TAB PO SCH (09:13)
[2019-12-14] MEDS: PRASUGREL 10 MG TAB PO SCH (09:14)
[2019-12-14] MEDS: METOPROLOL TARTRATE 50 MG TAB PO SCH (09:47)
[2019-12-14] MEDS: MORPHINE SULFATE ER 15 MG TABLET PO SCH (09:47)
[2019-12-14 10:11] VITALS: PULSE 62
[2019-12-14 11:44] LABS: Glucose,Whole Blood 202 mg/dL (75-99)
[2019-12-14] MEDS ORDERED: INFLUENZA VACCINE (6 MOS+) 60 MCG/0.5 ML SYRINGE IM ONE (12:35)
--- NOTE | 2019-12-16 23:37 | P.DS ---
Providers Date of admission: 12/12/19 14:13 Expected date of discharge: 12/14/19 Attending physician: Ricky Mills Consults: 12/10/19 20:05 Consult Physician Routine Consulting Provider: Ra Montes De Oca Consult Reason/Comments: Unstable angina Do you want consulting provider notified?: Yes 12/10/19 20:21 Consult Physician Routine Consulting Provider: Maryann Chou Consult Reason/Comments: pulm hypertension? Do you want consulting provider notified?: Yes 12/12/19 12:35 Consult Physician Routine Consulting Provider: [facility] Consult Reason/Comments: Post Interventional patient Do you want consulting provider notified?: Already Contacted Primary care physician: Alex Mars Hospital Course: Presenting complaint: Chest pain Hospital course: Patient of Dr. Mars. Patient admitted with chest pain. Chronic stable medical conditions include diabetes, GERD, hypertension, hyperlipidemia, osteoarthritis, CLL, peripheral neuropathy, chronic cervical and low back pain. Troponins were negative. Diagnosed with unstable angina.cardiac catheterization-underwent stent to the obtuse marginal branch. Had an episode of acute delirium. Resolved. Today-care was discussed in detail with the patient.questions answered. Discussed about scaling back his pain medications. Asymptomatic. Discussion and discharge planning more than 35 minutes Consultation: Dr. Bennett Montes De Oca from cardiology Dr. Chou from pulmonary On examination: VITAL SIGNS: 37.4-60-69 from 153/72- GENERAL APPEARANCE: sitting up, comfortable HEENT: Normal external appearance of nose and ear. Oral cavity normal EYES: Pupils equal. Conjunctiva normal. NECK: JVD not raised. Mass not palpable. RESPIRATORY: Respiratory effort normal. Lungs clear to auscultation. CARDIOVASCULAR: First and second sounds normal. No edema. ABDOMEN: Soft. Liver and spleen not palpable. No tenderness. No mass palpable. PSYCHIATRY: Alert and oriented x3. Mood and affect normal. INVESTIGATIONS, reviewed in the clinical context: White count 10.4 hemoglobin 13.9 creatinine 0.79 Previous testin-D echo-EF 50-55% somewhat emotional abnormality. Chest CTA-possible hepatic steatosis Chest x-ray-clear LDL 138 Assessment: -Unstable angina, POA -Coronary artery disease with angioplasty stent to obtuse marginal branch -Diabetes mellitus type 2, chronically insulin, uncontrolled with hyperglycaemia -Acute delirium, multifactorial , resolved -Chronic sleep deprivation and poor sleep hygiene -GERD -Hyperlipidemia -Essential hypertension -CLL -Diabetic peripheral neuropathy -Chronic cervical and low back pain -Depression otherwise specified disposition: Home Patient Condition at Discharge: Stable Plan - Discharge Summary Discharge Rx Participant: No New Discharge Prescriptions: New Aspirin 81 mg PO DAILY #30 chew Prasugrel [Effient] 10 mg PO DAILY #30 tab Atorvastatin [Lipitor] 40 mg PO DAILY #30 tab Metoprolol Tartrate [Lopressor] 50 mg PO BID #60 tab Nitroglycerin Sl Tabs [Nitrostat] 0.4 mg SUBLINGUAL Q5M PRN #25 tab PRN Reason: Chest Pain Lisinopril [Zestril] 5 mg PO DAILY #30 tab Melatonin 3 mg PO HS #30 tablet Continue Morphine Sulfate [Morphine Sulfate ER] 15 mg PO BID Levocetirizine Dihydrochloride [Xyzal] 5 mg PO DAILY Fenofibrate 54 mg PO HS amLODIPine [Norvasc] 10 mg PO DAILY Omeprazole [PriLOSEC] 20 mg PO AC-BID Citalopram Hydrobromide [CeleXA] 20 mg PO DAILY metFORMIN HCL 1,000 mg PO BID HYDROcodone/APAP 5-325MG [[place] 5-325] 1 tab PO BID PRN PRN Reason: Breakthrough Pain Insulin Glargine,Hum.rec.anlog [Lantus Solostar] 40 unit SQ HS Pioglitazone [Actos] 30 mg PO DAILY Discontinued Atorvastatin [Lipitor] 20 mg PO DAILY Lisinopril [Zestril] 2.5 mg PO DAILY Discharge Medication List Citalopram Hydrobromide [CeleXA] 20 mg PO DAILY 12/10/19 [History] Fenofibrate 54 mg PO HS 12/10/19 [History] HYDROcodone/APAP 5-325MG [[place] 5-325] 1 tab PO BID PRN 12/10/19 [History] Levocetirizine Dihydrochloride [Xyzal] 5 mg PO DAILY 12/10/19 [History] Morphine Sulfate [Morphine Sulfate ER] 15 mg PO BID 12/10/19 [History] Omeprazole [PriLOSEC] 20 mg PO AC-BID 12/10/19 [History] amLODIPine [Norvasc] 10 mg PO DAILY 12/10/19 [History] metFORMIN HCL 1,000 mg PO BID 12/10/19 [History] Insulin Glargine,Hum.rec.anlog [Lantus Solostar] 40 unit SQ HS 12/11/19 [History] Pioglitazone [Actos] 30 mg PO DAILY 12/11/19 [History] Aspirin 81 mg PO DAILY #30 chew 12/13/19 [Rx] Atorvastatin [Lipitor] 40 mg PO DAILY #30 tab 12/13/19 [Rx] Lisinopril [Zestril] 5 mg PO DAILY #30 tab 12/13/19 [Rx] Metoprolol Tartrate [Lopressor] 50 mg PO BID #60 tab 12/13/19 [Rx] Nitroglycerin Sl Tabs [Nitrostat] 0.4 mg SUBLINGUAL Q5M PRN #25 tab 12/13/19 [Rx] Prasugrel [Effient] 10 mg PO DAILY #30 tab 12/13/19 [Rx] Melatonin 3 mg PO HS #30 tablet 12/14/19 [Rx] Follow up Appointment(s)/Referral(s): Alex Mars MD [Primary Care Provider] - 12/20/19 11:00 am Mana Guajardo MD [STAFF PHYSICIAN] - 12/24/19 3:15 pm (At [facility], next to [place] in [place].) Maryann Chou MD [STAFF PHYSICIAN] - (Pulmonary.) Patient Instructions/Handouts: *Surgery [facility] - After Heart Catheterization - Historic [facility] Registrar Instructions, Heart Healthy Diet (DC), Coronary Intravascular Stent Placement (DC) Activity/Diet/Wound Care/Special Instructions: Effient covered - copay $3.60 Discharge Disposition: HOME SELF-CARE
== END 2019-12-14 14:07 | disposition home or self-care (01) | DRG 247 ==
LOC: EC 16:22 → 1SOBS 20:06 → 3SCARD 12-12 12:52 → OBSVTOIN 12-12 14:13 → 3SCARD 12-12 15:55
PROVIDERS: ADMIT Hospitalist; ATTEND Hospitalist
PROC: B2111ZZ Fluoroscopy of Multiple Coronary Arteries using Low Osmolar Contrast (ICD-10-PCS; 2019-12-12)
PROC: 027034Z Dilation of Coronary Artery, One Artery with Drug-eluting Intraluminal Device, Percutaneous Approach (ICD-10-PCS; principal; 2019-12-12 11:00)
PROC: 4A023N7 Measurement of Cardiac Sampling and Pressure, Left Heart, Percutaneous Approach (ICD-10-PCS; 2019-12-12 11:00)
PROC: 3E02340 Introduction of Influenza Vaccine into Muscle, Percutaneous Approach (ICD-10-PCS; 2019-12-14)
DX: I25.110 Atherosclerotic heart disease of native coronary artery with unstable angina pectoris (principal); E87.1 Hypo-osmolality and hyponatremia; E87.2 Acidosis; F05 Delirium due to known physiological condition; E11.42 Type 2 diabetes mellitus with diabetic polyneuropathy; I11.9 Hypertensive heart disease without heart failure; E11.65 Type 2 diabetes mellitus with hyperglycemia; K21.9 Gastro-esophageal reflux disease without esophagitis; F32.9 Major depressive disorder, single episode, unspecified; E78.5 Hyperlipidemia, unspecified; G89.29 Other chronic pain; E66.9 Obesity, unspecified; M19.90 Unspecified osteoarthritis, unspecified site; R00.0 Tachycardia, unspecified; M54.2 Cervicalgia; M54.5 Low back pain; Z68.33 Body mass index [BMI] 33.0-33.9, adult; I25.2 Old myocardial infarction; Z72.820 Sleep deprivation; Z23 Encounter for immunization; Z79.4 Long term (current) use of insulin; Z79.899 Other long term (current) drug therapy; Z98.890 Other specified postprocedural states; Z85.6 Personal history of leukemia; Z88.8 Allergy status to other drugs, medicaments and biological substances; Z91.041 Radiographic dye allergy status; Z91.013 Allergy to seafood; Z82.49 Family history of ischemic heart disease and other diseases of the circulatory system; Z80.1 Family history of malignant neoplasm of trachea, bronchus and lung
CPT/HCPCS: 36415; 70450; 71046; 71275; 80048; 80053; 80061; 80306; 81003; 83036; 83690; 83735; 83880; 84484; 85025; 85610; 85730; 90686; 93005; 93306; 93458; 96361; 96365; 96366; 96375; 96376; 99291; C1874

== ENCOUNTER → 2022-11-16 | Outpatient (CLI) | payer MEDICARE ==
[~2022-11-16] MED LIST: REGADENOSON 0.4 MG/5 ML SYRINGE IV PRN
--- NOTE | 2022-11-16 10:06 | NM ---
EXAMINATION TYPE: NM myocardial SPECT single DATE OF EXAM: 11/16/2022 COMPARISON: Prior study June 07, 2014 HISTORY: Chest pain and hypertension Following administration of 9.6 mCi Tc 99m Sestamibi. Images obtained 45 minutes post injection. FINDINGS: Poor uptake involving the inferior left ventricular wall extending towards the septal wall. Calculated ejection fraction is 52% IMPRESSION: As above.
== END | disposition home or self-care (01) ==
LOC: RADNMMAIN 07:47
PROVIDERS: ATTEND Internal Medicine Interventional Cardiology
DX: R07.9 Chest pain, unspecified (principal); I10 Essential (primary) hypertension
CPT/HCPCS: 78451; A9500

== ENCOUNTER 2024-03-15 10:39 | Observation (INO) | payer MEDICARE, OTHER ==
--- NOTE | 2024-03-15 11:16 | ED ---
Chest Pain HPI - General Chief Complaint: Chest Pain Stated Complaint: Chest pain Time Seen by Provider: 03/15/24 10:55 Source: patient, RN notes reviewed, old records reviewed Mode of arrival: EMS Limitations: no limitations - History of Present Illness Initial Comments: This is a 63-year-old male who presents to the emergency department with a past medical history significant for stent placement diabetes hypertension high cholesterol. Patient got an argument with his son and he went for a walk. Patient states he walked about [address] more than he should have walked but he started having chest pain. Patient states he was eventually sent to the hospital they gave nitroglycerin and he had 4 aspirin and took the pain away. Patient states while at the hospital he started having chest pain again and they gave him another nitroglycerin and currently his chest pain-free. Patient states he was mildly short of breath. Patient denies any diaphoretic episodes patient has any nausea vomiting. I spoke with the ER doc from [facility] and he stated that the patient had 2 troponins both of which were negative but because of his repeated pain and relief with nitroglycerin he wanted the patient to come to our facility to see cardiology. - Related Data Home Medications Medication Instructions Recorded Confirmed Levocetirizine Dihydrochloride 5 mg PO DAILY@29912/10/19 03/15/24 [Xyzal] Omeprazole [PriLOSEC] 20 mg PO BID@12/10/19 03/15/24 amLODIPine [Norvasc] 10 mg PO DAILY@29912/10/19 03/15/24 Insulin Glargine,Hum.rec.anlog 30 unit SQ BID@12/11/19 03/15/24 [Lantus Solostar Pen] Pioglitazone [Actos] 30 mg PO DAILY@29912/11/19 03/15/24 Ascorbic Acid [Vitamin C] 500 mg PO DAILY@29903/15/24 03/15/24 Aspirin EC [Ecotrin Low Dose] 81 mg PO DAILY@29903/15/24 03/15/24 Atorvastatin [Lipitor] 80 mg PO DAILY@29903/15/24 03/15/24 Cholecalciferol [Vitamin D3 (25 100 mcg PO DAILY@29903/15/24 03/15/24 Mcg = 1000 Iu)] Cyanocobalamin (Vitamin B-12) 1,000 mcg PO DAILY@29903/15/24 03/15/24 [Vitamin B-12] EPINEPHrine (Auto Inject) [Epipen] 0.3 mg IM ONCE PRN 03/15/24 03/15/24 Empagliflozin [Jardiance] 25 mg PO DAILY@29903/15/24 03/15/24 Fluticasone Nasal [place] [Flonase 1 - 2 spr EA NOSTRIL BID PRN 03/15/24 03/15/24 Nasal [place]] Metoprolol Succinate (ER) [Toprol 25 mg PO DAILY@29903/15/24 03/15/24 Xl] Mv-Min/Folic/K1/Lycopen/Lutein 1 tab PO DAILY@29903/15/24 03/15/24 [Centrum Silver Men Tablet] Prasugrel [Effient] 10 mg PO DAILY@29903/15/24 03/15/24 lisinopriL [Prinivil] 10 mg PO DAILY@29903/15/24 03/15/24 Allergies Allergy/AdvReac Type Severity Reaction Status Date / Time Iodinated Contrast Media Allergy Anaphylaxis Verified 03/15/24 11:34 shellfish derived [Shellfish] Allergy Anaphylaxis Verified 03/15/24 11:34 corn AdvReac Unknown Verified 03/15/24 11:34 exenatide [From Bydureon] AdvReac Nausea & Verified 03/15/24 11:34 Vomiting lactose AdvReac Nausea & Verified 03/15/24 11:34 Vomiting & Diarrhea lithium AdvReac Nausea & Verified 03/15/24 11:34 Vomiting Review of Systems ROS Statement: Those systems with pertinent positive or pertinent negative responses have been documented in the HPI. ROS Other: All systems not noted in ROS Statement are negative. 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 Last Myocardial Infarction Date:: 1992 History of Any Multi-Drug Resistant Organisms: None Reported Past Surgical History: Heart Catheterization, Hernia Repair Additional Past Surgical History / Comment(s): Cardiac cath about 20 yrs ago that was normal, umbilical hernia repair, colonoscopy with benign polypectomy. Past Anesthesia/Blood Transfusion Reactions: No Reported Reaction Past Psychological History: Depression Smoking Status: Never smoker Past Alcohol Use History: None Reported Past Drug Use History: None Reported - Past Family History Father Family Medical History: Cancer Additional Family Medical History / Comment(s): Father of lymphoma at the age of 53 yrs. Mother Family Medical History: Cancer, Vascular Disorder Additional Family Medical History / Comment(s): Mother of lung cancer. She also had breast/bone cancer. She was a smoker. General Exam - General Exam Comments Initial Comments: GENERAL: Patient is well-developed and well-nourished. Patient is nontoxic and well- hydrated and is in no acute distress. ENT: Neck is soft and supple. No significant lymphadenopathy is noted. Oropharynx is clear. Moist mucous membranes. Neck has full range of motion without eliciting any pain. EYES: The sclera were anicteric and conjunctiva were pink and moist. Extraocular movements were intact and pupils were equal round and reactive to light. Eyelids were unremarkable. PULMONARY: Unlabored respirations. Good breath sounds bilaterally. No audible rales rhonchi or wheezing was noted. CARDIOVASCULAR: There is a regular rate and rhythm without any murmurs gallops or rubs. ABDOMEN: Soft and nontender with normal bowel sounds. SKIN: Skin is clear with no lesions or rashes and otherwise unremarkable. NEUROLOGIC: Patient is alert and oriented x3. Cranial nerves II through XII are grossly intact. Motor and sensory are also intact. Normal speech, volume and content. Symmetrical smile. MUSCULOSKELETAL: Normal extremities with adequate strength and full range of motion. No lower extremity swelling or edema. No calf tenderness. LYMPHATICS: No significant lymphadenopathy is noted PSYCHIATRIC: Normal psychiatric evaluation. Limitations: no limitations Course Vital Signs 03/15/24 03/15/24 10:48 11:19 Temperature 97.7 F Pulse Rate 83 Respiratory 16 20 Rate Blood Pressure 163/47 O2 Sat by Pulse 99 Oximetry Chest [facility] EKG is interpreted by myself. EKG shows a sinus rhythm at 83 bpm parable 156 QRS is 133 QT interval is 412 QTc is 452. Patient's EKG shows no ST segment ovation or depression. Patient has a right bundle branch block. Was pt. sent in by a medical professional or institution (YOVANY Wen, [employer], urgent care, hospital, or group home...) When possible be specific @ -[facility] sent the patient to us Did you speak to anyone other than the patient for history (EMS, parent, family, police, friend...)? What history was obtained from this source @ -I spoke with the ER doc at [facility] prior to transfer Did you review nursing and triage notes (agree or disagree)? Why? @ -I reviewed and agree with nursing and triage notes Were old charts reviewed (outside hosp., previous admission, EMS record, old EKG, old radiological studies, urgent care reports/EKG's, group home records)? Report findings @ -I reviewed all the documentation from [facility] and the troponin levels which were both normal. I also reviewed the rest of the lab work Differential Diagnosis (chest pain, altered mental status, abdominal pain women, abdominal pain men, vaginal bleeding, weakness, fever, dyspnea, syncope, headache, dizziness, GI bleed, back pain, seizure, CVA, palpatations, mental health, musculoskeletal)? @ -Differential Chest Pain: Stable Angina, Unstable Angina, STEMI, NSTEMI Aortic Dissection, Pneumothorax, Musculoskeletal, Esophageal Spasm GERD, Cholecystitis, Pancreatitis, Zoster, this is not meant to be an all-inclusive list. EKG interpreted by me (3pts min.). @ -As above X-rays interpreted by me (1pt min.). @ -None done CT interpreted by me (1pt min.). @ -None done U/S interpreted by me (1pt. min.). @ -None done What testing was considered but not performed or refused? (CT, X-rays, U/S, labs)? Why? @ -None What meds were considered but not given or refused? Why? @ -None Did you discuss the management of the patient with other professionals (professionals i.e. YOVANY Wen, BEVERAGE DISTILLER, lab, RT, psych nurse, social work manager, wet mix operator, teacher, plain clothes police officer, housing case manager)? Give summary @ -I spoke with Dr. Johnston he agreed to admit the patient but the patient wrote admitting orders Was smoking cessation discussed for >3mins.? @ -No Was critical care preformed (if so, how long)? @ -No Were there social determinants of health that impacted care today? How? (Homelessness, low income, unemployed, alcoholism, drug addiction, trans portation, low edu. Level, literacy, decrease access to med. care, usp, rehab)? @ -No Was there de-escalation of care discussed even if they declined (Discuss DNR or withdrawal of care, Hospice)? DNR status @ -No What co-morbidities impacted this encounter? (DM, HTN, Smoking, COPD, CAD, Cancer, CVA, ARF, Chemo, Hep., AIDS, mental health diagnosis, sleep apnea, morbid obesity)? @ -None Was patient admitted / discharged? Hospital course, mention meds given and route, prescriptions, significant lab abnormalities, going to OR and other pertinent info. @ -Patient already had aspirin at the other facility and I started him on Nitropaste. Patient was chest pain-free in our emergency department. Spoke with Dr. Johnston he agreed to admit the patient with the patient wrote admitting orders Undiagnosed new problem with uncertain prognosis? @ -No Drug Therapy requiring intensive monitoring for toxicity (Heparin, Nitro, Insulin, Cardizem)? @ -No Were any procedures done? @ -No Diagnosis/symptom? @ -Chest pain Acute, or Chronic, or Acute on Chronic? @ -Acute Uncomplicated (without systemic symptoms) or Complicated (systemic symptoms)? @ -Complicated Side effects of treatment? @ -No Exacerbation, Progression, or Severe Exacerbation? @ -No Poses a threat to life or bodily function? How? (Chest pain, [place], [place], pneumonia, PE, COPD, DKA, ARF, appy, cholecystitis, CVA, Diverticulitis, Homicidal, Suicidal, threat to staff... and all critical care pts) @ -Yes this can lead to an TX and end organ dysfunction Disposition Clinical Impression: Chest pain Disposition: ADMITTED IP TO THIS HOSP Referrals: Alex Mars MD [Primary Care Provider] - 1-2 days Time of Disposition: 11:16
[2024-03-15] MEDS ORDERED: NITROGLYCERIN SL TABS 0.4 MG TAB SUBLINGUAL PRN (11:17)
[2024-03-15] MEDS ORDERED: NON FORMULARY DRUG (Epinephrine (Auto Inject) 0.3 MG/0.3 ML Each) IM PRN (12:25)
--- NOTE | 2024-03-15 12:28 | P.HPIM ---
History of Present Illness this is a pleasant 64 years old male with past medical history of multiple medical problems as below. Patient was transferred from [facility] for chest pain. Patient has been having quite upset with his son and he went for a walk for 2 to 3 miles and then he started having chest pain. Chest pain is central nonradiating felt like tightness Rated about 8/10 in severity currently 0/10, completely resolved. Associated with little dyspnea when it happened Patient denies fever chills no change in urine or bowel habits or weakness numbness. Patient denies alcohol smoking or illicit drugs. Hemodynamically stable Labs from [facility] reviewed, WBC is 9K, hemoglobin 13.9 and platelet count 222. Sodium 142 potassium 4.7 Creatinine 1.1 and BUN elevated 27 Glucose high 268 Troponin x 2 are negative less than 0.012. Liver enzymes negative. Lipase 134 which is normal CK is 115 and 124 which are normal. Chest x-ray is negative for acute process EKG is sinus rhythm at 86 with right bundle branch block. QTc is elevated 523. His project finance analyst Dr. Brown and Dr. Mooney Review of Systems Review of systems CONSTITUTIONAL: No fever, no malaise, no fatigue. HEENT: No recent visual problems or hearing problems. Denied any sore throat. CARDIOVASCULAR: No orthopnea, PND, no palpitations, no syncope. PULMONARY: No shortness of breath, no cough, no hemoptysis. GASTROINTESTINAL: No diarrhea, no nausea, no vomiting, no abdominal pain. Normoactive bowel sounds. NEUROLOGICAL: No headaches, no weakness, no numbness. HEMATOLOGICAL: Denies any bleeding or petechiae. GENITOURINARY: Denies any burning micturition, frequency, or urgency. MUSCULOSKELETAL/RHEUMATOLOGICAL: Denies any joint pain, swelling, or any muscle pain. ENDOCRINE: Denies any polyuria or polydipsia. 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 Last Myocardial Infarction Date:: 1992 History of Any Multi-Drug Resistant Organisms: None Reported Past Surgical History: Heart Catheterization, Hernia Repair Additional Past Surgical History / Comment(s): Cardiac cath about 20 yrs ago that was normal, umbilical hernia repair, colonoscopy with benign polypectomy. Past Anesthesia/Blood Transfusion Reactions: No Reported Reaction Past Psychological History: Depression Smoking Status: Never smoker Past Alcohol Use History: None Reported Past Drug Use History: None Reported - Past Family History Father Family Medical History: Cancer Additional Family Medical History / Comment(s): Father of lymphoma at the age of 53 yrs. Mother Family Medical History: Cancer, Vascular Disorder Additional Family Medical History / Comment(s): Mother of lung cancer. She also had breast/bone cancer. She was a smoker. Medications and Allergies Home Medications Medication Instructions Recorded Confirmed Type Levocetirizine Dihydrochloride 5 mg PO DAILY@29912/10/19 03/15/24 History [Xyzal] Omeprazole [PriLOSEC] 20 mg PO BID@299,149912/10/19 03/15/24 History amLODIPine [Norvasc] 10 mg PO DAILY@29912/10/19 03/15/24 History Insulin Glargine,Hum.rec.anlog 30 unit SQ BID@299,149912/11/19 03/15/24 History [Lantus Solostar Pen] Pioglitazone [Actos] 30 mg PO DAILY@29912/11/19 03/15/24 History Ascorbic Acid [Vitamin C] 500 mg PO DAILY@29903/15/24 03/15/24 History Aspirin EC [Ecotrin Low Dose] 81 mg PO DAILY@29903/15/24 03/15/24 History Atorvastatin [Lipitor] 80 mg PO DAILY@29903/15/24 03/15/24 History Cholecalciferol [Vitamin D3 (25 100 mcg PO DAILY@29903/15/24 03/15/24 History Mcg = 1000 Iu)] Cyanocobalamin (Vitamin B-12) 1,000 mcg PO DAILY@29903/15/24 03/15/24 History [Vitamin B-12] EPINEPHrine (Auto Inject) [Epipen] 0.3 mg IM ONCE PRN 03/15/24 03/15/24 History Empagliflozin [Jardiance] 25 mg PO DAILY@29903/15/24 03/15/24 History Fluticasone Nasal [place] [Flonase 1 - 2 spr EA NOSTRIL BID PRN 03/15/24 03/15/24 History Nasal [place]] Metoprolol Succinate (ER) [Toprol 25 mg PO DAILY@29903/15/24 03/15/24 History Xl] Mv-Min/Folic/K1/Lycopen/Lutein 1 tab PO DAILY@29903/15/24 03/15/24 History [Centrum Silver Men Tablet] Prasugrel [Effient] 10 mg PO DAILY@29903/15/24 03/15/24 History lisinopriL [Prinivil] 10 mg PO DAILY@29903/15/24 03/15/24 History Allergies Allergy/AdvReac Type Severity Reaction Status Date / Time Iodinated Contrast Media Allergy Anaphylaxis Verified 03/15/24 11:34 shellfish derived [Shellfish] Allergy Anaphylaxis Verified 03/15/24 11:34 corn AdvReac Unknown Verified 03/15/24 11:34 exenatide [From Bydureon] AdvReac Nausea & Verified 03/15/24 11:34 Vomiting lactose AdvReac Nausea & Verified 03/15/24 11:34 Vomiting & Diarrhea lithium AdvReac Nausea & Verified 03/15/24 11:34 Vomiting Physical Exam Vitals: Vital Signs Temp Pulse Pulse Resp BP Pulse Ox 03/15/24 12:19 81 03/15/24 11:59 76 16 144/88 98 03/15/24 11:19 20 03/15/24 10:48 97.7 F 83 16 163/47 99 Intake and Output 03/14/24 03/15/24 03/15/24 22:59 06:59 14:59 Other: Weight 81.647 kg GENERAL: The patient is alert and oriented x3, not in any acute distress. Well developed, well nourished. HEENT: Pupils are round and equally reacting to light. EOMI. No scleral icterus. No conjunctival pallor. Normocephalic, atraumatic. No pharyngeal erythema. No thyromegaly. CARDIOVASCULAR: S1 and S2 present. No murmurs, rubs, or gallops. PULMONARY: Chest is clear to auscultation, no wheezing , no crackles. ABDOMEN: Soft, nontender, nondistended, normoactive bowel sounds. No palpable organomegaly. MUSCULOSKELETAL: No joint swelling or deformity. EXTREMITIES: No cyanosis, clubbing, or pedal edema. NEUROLOGICAL: Gross neurological examination did not reveal any focal deficits. SKIN: No rashes. no petechiae. Assessment and Plan Assessment: Chest pain, rule out cardiac causes and coronary artery disease Prolonged QT interval Diabetes mellitus Hypertension Hyperlipidemia History of osteoarthritis History of GERD CLL Chronic cervical and back pain Obesity with BMI of 30 Plan: Currently on aspirin 325 mg daily. Patient also on Effient Continue metoprolol and lisinopril Cardiology consult labs and medication were reviewed.. Continue same treatment. Continue with symptomatic treatment. Resume home medication. Monitor lytes and vitals. DVT and GI prophylaxis. Further recommendations depends on the clinical course of the patient DVT prophylaxis: Subcutaneous heparin GI Prophylaxis: Pepcid Prognosis is guarded
[2024-03-15] MEDS: NITROGLYCERIN OINT 1 INCH/GM PACKET TOPICAL SCH (14:12)
[2024-03-15 18:39] LABS: Glucose,Whole Blood 91 mg/dL (70-110)
[2024-03-15] MEDS ORDERED: CALCIUM CARBONATE 500 MG CHEWABLE PO PRN (18:42)
[2024-03-15] MEDS ORDERED: FLUTICASONE 50MCG/SPRAY NASAL 16GM EA NOSTRIL PRN (18:54)
[2024-03-15 20:09] LABS: Glucose,Whole Blood 102 mg/dL (70-110)
[2024-03-15] MEDS: PANTOPRAZOLE 40 MG/10 ML VIAL IVP SCH (21:13)
[2024-03-16] MEDS: ASCORBIC ACID 500 MG TAB PO SCH (02:49)
[2024-03-16] MEDS: amLODIPine 10 MG TAB PO SCH (02:49)
[2024-03-16] MEDS: CHOLECALCIFEROL 25 MCG (1000 IU) TABLET PO SCH (02:49)
[2024-03-16] MEDS: ATORVASTATIN 80 MG TAB PO SCH (02:49)
[2024-03-16] MEDS: DAPAGLIFLOZIN PROPANEDIOL 10 MG TABLET PO SCH (02:49)
[2024-03-16] MEDS: CYANOCOBALAMIN 500 MCG TAB PO SCH (02:49)
[2024-03-16] MEDS: METOPROLOL SUCCINATE (ER) 25 MG TAB.ER.24H PO SCH (02:50)
[2024-03-16] MEDS: PIOGLITAZONE 30 MG TAB PO SCH (02:50)
[2024-03-16] MEDS: lisinopriL 10 MG TAB PO SCH (02:50)
[2024-03-16] MEDS: PRASUGREL 10 MG TAB PO SCH (02:50)
[2024-03-16 05:36] LABS: Glucose,Whole Blood 93 mg/dL (70-110)
[2024-03-16] MEDS: INSULIN DETEMIR (LEVEMIR) 100 UNIT/ML SYR SQ SCH (05:36)
[2024-03-16] MEDS ORDERED: HEPARIN SODIUM,PORCINE (1 ML) 2,500 UNIT in SODIUM CHLORIDE 0.9% 250 ML IRRIGATION PRN (07:00)
[2024-03-16] MEDS ORDERED: HEPARIN SODIUM,PORCINE 10,000 UNIT in SODIUM CHLORIDE 0.9% 1,000 ML IRRIGATION PRN (07:00)
[2024-03-16 08:42] LABS: LDL Cholesterol,Calculated 85.4 mg/dL (0.0-131.0)
[2024-03-16] MEDS ORDERED: ALPRAZolam 0.25 MG TAB PO PRN (08:46)
[2024-03-16] MEDS ORDERED: ALPRAZolam 0.5 MG TAB PO PRN (08:46)
[2024-03-16] MEDS ORDERED: NITROGLYCERIN SL TABS 0.4 MG TAB SUBLINGUAL PRN (08:46)
[2024-03-16] MEDS ORDERED: ASPIRIN 325 MG TAB PO SCH (09:00)
[2024-03-16] MEDS: ASPIRIN 81 MG PO SCH (09:05)
[2024-03-16] MEDS: methylPREDNISolone SOD SUCCI 125 MG/2 ML VIAL IV STA (09:18)
[2024-03-16] MEDS: diphenhydrAMINE 50 MG/ML 1 ML VIAL IVP ONE ×2 (09:20→10:17)
[2024-03-16] MEDS: lisinopriL 10 MG TAB PO STA (09:20)
[2024-03-16] MEDS: ASPIRIN 325 MG TAB PO STA (09:20)
[2024-03-16] MEDS: SODIUM CHLORIDE 0.9% 1,000 ML in EMPTY BAG 1 BAG IV ONE (09:20)
[2024-03-16] MEDS ORDERED: VERAPAMIL 2.5 MG/ML 2 ML AMP ONE (09:37)
[2024-03-16] MEDS ORDERED: LIDOCAINE 1% INJ 10MG/ML (20 ML MDV) ONE (09:37)
[2024-03-16] MEDS: SODIUM CHLORIDE 0.9% 1,000 ML IV ONE ×2 (09:50→11:32)
--- NOTE | 2024-03-16 09:53 | P.CRDCN ---
History of Present Illness Consult date: 03/16/24 Consult reason: chest pain History of present illness: History of present illness: This is a 63-year-old male patient of Dr. DARIUS Brown with past medical history of coronary artery disease with prior PCI of the circumflex marginal, diabetes mellitus type 2 insulin requiring, hypertension, hyperlipidemia, CVA. Patient was last seen in the office with Dr. Brown on 08/27/2022. We have been asked to evaluate the patient for chest pain. Patient was transferred from [facility] to [facility]. Patient gives history that he got into an argument with his son and was upset and then his car broke down he ended up walking for 3 miles and developed chest pain while he was walking. He states it was a crushing type in the middle of his chest and he had a little sensation in his arms. He stopped for about 20 minutes and the pain went away. He also states he had a little chest pain and pounding this morning when he walked to the nurses desk. He states this sensation was a tightness and it is still present. He did have some increased shortness of breath this morning. Patient did not experience chest pain when he had stenting done in the past. EKG sinus rhythm with right bundle branch block Chest x-ray performed at [facility] negative for acute process: Troponin negative x 2 at [facility]. Lab work at [facility] 9, hemoglobin 13.9, platelet count 222. Sodium 142, potassium 4.7, creatinine 1.1, BUN 27. Blood sugar 268. Troponin negative x 2. Home cardiac medications: Amlodipine 10 mg daily, aspirin 81 mg daily, Lipitor 80 mg daily, Jardiance 25 mg daily, lisinopril 10 mg daily, Toprol-XL 25 mg daily, Effient 10 mg daily. Cardiac catheterization performed 12/10/[address] Guajardo found critical stenosis involving the first obtuse marginal branch and he subsequently underwent angioplasty and stenting with Dr. Montes De Oca. Other findings from cardiac catheterization: 50% stenosis of the proximal LAD. First diagonal diffuse disease. Right coronary artery nondominant with mild diffuse disease. Echocardiogram performed 12/11/2019 reveals EF 50 to 55%, mild concentric left ventricular hypertrophy. Mild mitral regurgitation. Mild aortic valve sclerosis. No pulmonary hypertension. Review Of Systems: At the time of my exam: CONSTITUTIONAL: Denies fever or chills. HEENT: Denies blurred vision, vision changes, or eye pain. Denies hemoptysis CARDIOVASCULAR: Denies chest pain. Denies orthopnea. Denies PND. Denies palpitations RESPIRATORY: Denies shortness of breath. GASTROINTESTINAL: Denies abdominal pain. Denies nausea or vomiting. HEMATOLOGIC: Denies bleeding disorders. GENITOURINARY: Denies any blood in urine. SKIN: Denies pruitis. Denies rash. Physical examination: Gen: This is a 63-year-old male in no acute distress VS: reviewed, blood pressure 153/73, heart rate 76, pulse ox 97% on room air. HEENT: Head is atraumatic, normocephalic. Pupils equal, round. Sclerae is anicteric. NECK: Supple. No JVD. LUNGS: Clear to auscultation. No wheezes or rhonchi. No intercostal retractions. HEART: Regular rate and rhythm. No murmur. ABDOMEN: Soft No tenderness. EXTREMITIES: No pedal edema. No calf tenderness. NEUROLOGICAL: Patient is awake, alert and oriented x3. Assessment: Chest pain concerning for obstructive coronary artery disease History of coronary artery disease with previous stenting Diabetes mellitus type 2 insulin requiring Hypertension Hyperlipidemia Plan: Resume patient's home cardiac medications Increase lisinopril to 20 mg daily additional 10 now Schedule patient for cardiac catheterization today with Dr. DARIUS Brown Obtain 2-D echocardiogram and Doppler study to assess cardiac structure and function Further recommendations to follow based upon clinical course Thank you kindly for this consultation. Nurse practitioner note has been reviewed, I agree with documented findings and plan of care. Patient was seen and examined. Past Medical History Past Medical History: Asthma, Cancer, Chest Pain / Angina, Diabetes Mellitus, GERD/Reflux, Hyperlipidemia, Hypertension, Myocardial Infarction (RI), Osteoarthritis (OA), Pneumonia Additional Past Medical History / Comment(s): CLLwith low platelets-no treatment required so far, IDDM type II, neuropathy bilateral hands/legs/feet, chronic cervical and low back pain. Last Myocardial Infarction Date:: 1992 History of Any Multi-Drug Resistant Organisms: None Reported Past Surgical History: Heart Catheterization, Hernia Repair Additional Past Surgical History / Comment(s): pt states he had a cardiac cath with stent placement 4 years ago, umbilical hernia repair, colonoscopy with benign polypectomy. Past Anesthesia/Blood Transfusion Reactions: No Reported Reaction Past Psychological History: Depression Additional Psychological History / Comment(s): Pt states his spouse about 6 yrs ago. He resides with his 1biological daughter currently. Pt states he gets around without the use of any assistive devices Smoking Status: Never smoker Past Alcohol Use History: None Reported Past Drug Use History: None Reported - Past Family History Father Family Medical History: Cancer Additional Family Medical History / Comment(s): Father of lymphoma at the age of 53 yrs. Mother Family Medical History: Cancer, Vascular Disorder Additional Family Medical History / Comment(s): Mother of lung cancer. She also had breast/bone cancer. She was a smoker. Medications and Allergies Home Medications Medication Instructions Recorded Confirmed Type Levocetirizine Dihydrochloride 5 mg PO DAILY@29912/10/19 03/15/24 History [Xyzal] Omeprazole [PriLOSEC] 20 mg PO BID@299,1500 12/10/19 03/15/24 History amLODIPine [Norvasc] 10 mg PO DAILY@29912/10/19 03/15/24 History Insulin Glargine,Hum.rec.anlog 30 unit SQ BID@299,1500 12/11/19 03/15/24 History [Lantus Solostar Pen] Pioglitazone [Actos] 30 mg PO DAILY@29912/11/19 03/15/24 History Ascorbic Acid [Vitamin C] 500 mg PO DAILY@29903/15/24 03/15/24 History Aspirin EC [Ecotrin Low Dose] 81 mg PO DAILY@29903/15/24 03/15/24 History Atorvastatin [Lipitor] 80 mg PO DAILY@29903/15/24 03/15/24 History Cholecalciferol [Vitamin D3 (25 100 mcg PO DAILY@29903/15/24 03/15/24 History Mcg = 1000 Iu)] Cyanocobalamin (Vitamin B-12) 1,000 mcg PO DAILY@29903/15/24 03/15/24 History [Vitamin B-12] EPINEPHrine (Auto Inject) [Epipen] 0.3 mg IM ONCE PRN 03/15/24 03/15/24 History Empagliflozin [Jardiance] 25 mg PO DAILY@29903/15/24 03/15/24 History Fluticasone Nasal [place] [Flonase 1 - 2 spr EA NOSTRIL BID PRN 03/15/24 03/15/24 History Nasal [place]] Metoprolol Succinate (ER) [Toprol 25 mg PO DAILY@29903/15/24 03/15/24 History Xl] Mv-Min/Folic/K1/Lycopen/Lutein 1 tab PO DAILY@29903/15/24 03/15/24 History [Centrum Silver Men Tablet] Prasugrel [Effient] 10 mg PO DAILY@29903/15/24 03/15/24 History lisinopriL [Prinivil] 10 mg PO DAILY@29903/15/24 03/15/24 History Allergies Allergy/AdvReac Type Severity Reaction Status Date / Time Iodinated Contrast Media Allergy Anaphylaxis Verified 03/15/24 14:29 shellfish derived [Shellfish] Allergy Anaphylaxis Verified 03/15/24 14:29 corn AdvReac Unknown Verified 03/15/24 14:29 exenatide [From Bydureon] AdvReac Nausea & Verified 03/15/24 14:29 Vomiting lactose AdvReac Nausea & Verified 03/15/24 14:29 Vomiting & Diarrhea lithium AdvReac Nausea & Verified 03/15/24 14:29 Vomiting Physical Exam Vitals: Vital Signs Temp Pulse Pulse Pulse Resp BP BP 03/16/24 02:27 98.2 F 76 15 153/73 03/15/24 18:27 97.5 F L 72 16 190/86 03/15/24 17:00 62 16 139/75 03/15/24 16:00 67 16 139/88 03/15/24 15:00 16 03/15/24 14:00 69 16 03/15/24 13:00 68 16 136/72 03/15/24 12:19 81 03/15/24 12:00 61 16 141/64 03/15/24 11:59 76 16 144/88 03/15/24 11:19 20 03/15/24 10:48 97.7 F 83 16 163/47 Pulse Ox 03/16/24 02:27 97 03/15/24 18:27 98 03/15/24 17:00 99 03/15/24 16:00 95 03/15/24 15:00 99 05/02/24 14:00 95 03/15/24 13:00 94 L 03/15/24 12:19 03/15/24 12:00 93 L 03/15/24 11:59 98 03/15/24 11:19 03/15/24 10:48 99 Intake and Output 03/15/24 03/16/24 03/16/24 22:59 06:59 14:59 Other: Weight 81.647 kg Results Cardiac Enzymes 03/15/24 03/15/24 Range/Units 12:09 15:40 Troponin I <0.012 <0.012 (0.000-0.034) ng/mL Current Medications Generic Name Dose Route Start Last Admin Trade Name Freq PRN Reason Stop Dose Admin Amlodipine Besylate 10 mg 03/16/24 03:00 03/16/24 02:49 Amlodipine 10 Mg Tab PO 10 mg DAILY@030 [facility] Administration Ascorbic Acid 500 mg 03/16/24 03:00 03/16/24 02:49 Ascorbic Acid 500 Mg Tab PO 500 mg DAILY@030 [facility] Administration Aspirin 325 mg 03/16/24 09:00 Aspirin 325 Mg Tab PO DAILY [facility] Atorvastatin Calcium 80 mg 03/16/24 03:00 03/16/24 02:49 Atorvastatin 80 Mg Tab PO 80 mg DAILY@030 [facility] Administration Calcium Carbonate/Glycine 500 mg 03/15/24 18:42 Calcium Carbonate 500 Mg Chewable PO TID PRN Heartburn Cholecalciferol 100 mcg 03/16/24 03:00 03/16/24 02:49 Cholecalciferol 25 Mcg (1000 Iu) Tablet PO 100 mcg DAILY@030 [facility] Administration Cyanocobalamin 1,000 mcg 03/16/24 03:00 03/16/24 02:49 Cyanocobalamin 500 Mcg Tab PO 1,000 mcg DAILY@030 [facility] Administration Dapagliflozin 10 mg 03/16/24 03:00 03/16/24 02:49 Dapagliflozin Propanediol 10 Mg Tablet PO 10 mg DAILY@030 [facility] Administration Fluticasone Propionate 1 spray 03/15/24 18:54 Fluticasone 50mcg/[place] Nasal 16gm EA NOSTRIL BID PRN Allergy Symptoms Insulin Detemir 30 unit 03/16/24 07:00 03/16/24 05:36 Insulin Detemir (Levemir) 100 Unit/Ml Syr SQ Not Given DAILY@07 [facility] Lisinopril 10 mg 03/16/24 03:00 03/16/24 02:50 Lisinopril 10 Mg Tab PO 10 mg DAILY@0300 [facility] Administration Metoprolol Succinate 25 mg 03/16/24 03:00 03/16/24 02:50 Metoprolol Succinate (Er) 25 Mg Tab.Er.24h PO 25 mg DAILY@0300 [facility] Administration Nitroglycerin 1 inch 03/15/24 12:00 03/16/24 05:29 Nitroglycerin Oint 1 Inch/Gm Packet TOPICAL 1 inch Q6HR [facility] Administration Nitroglycerin 0.4 mg 03/15/24 11:17 Nitroglycerin Sl Tabs 0.4 Mg Tab SUBLINGUAL Q5M PRN Chest Pain Pantoprazole Sodium 40 mg 03/15/24 21:00 03/15/24 21:13 Pantoprazole 40 Mg/10 Ml Vial IVP 40 mg BID [facility] Administration Pioglitazone HCl 30 mg 03/16/24 03:00 03/16/24 02:50 Pioglitazone 30 Mg Tab PO 30 mg DAILY@030 [facility] Administration Prasugrel 10 mg 03/16/24 03:00 03/16/24 02:50 Prasugrel 10 Mg Tab PO 10 mg DAILY@030 [facility] Administration Intake and Output 03/15/24 03/16/24 03/16/24 22:59 06:59 14:59 Other: Weight 81.647 kg
[2024-03-16] MEDS ORDERED: methylPREDNISolone SOD SUCCI 125 MG/2 ML VIAL ONE (10:10)
[2024-03-16] MEDS ORDERED: diphenhydrAMINE 50 MG/ML 1 ML VIAL ONE (10:10)
[2024-03-16] MEDS ORDERED: HEPARIN SODIUM 1,000 UN/ML (10ML VL) ONE (10:12)
[2024-03-16] MEDS: LIDOCAINE 1% INJ 10MG/ML (20 ML MDV) SQ ONE (10:15)
[2024-03-16] MEDS: methylPREDNISolone SOD SUCCI 125 MG/2 ML VIAL IVP ONE (10:17)
[2024-03-16] MEDS: MIDAZOLAM 2 MG/2 ML VIAL IVP ONE (10:17)
[2024-03-16] MEDS: VERAPAMIL SYRINGE (5 MG/10 ML) INTRAARTER ONE (10:18)
[2024-03-16] MEDS: HEPARIN SODIUM 1,000 UN/ML (10ML VL) IVP ONE (10:25)
[2024-03-16] MEDS: IOPAMIDOL-370 100ML BTL INJ ONE ×3 (10:42→12:02)
[2024-03-16] MEDS ORDERED: NITROGLYCERIN SL TABS 0.4 MG TAB SUBLINGUAL ONE (11:11)
[2024-03-16] MEDS: NITROGLYCERIN SL TABS 0.4 MG TAB SUBLINGUAL ONE (11:14)
[2024-03-16] MEDS: NITROGLYCERIN 1000MCG/10ML SYRINGE INTRACORON ONE (11:38)
[2024-03-16] MEDS ORDERED: PRASUGREL 10 MG TAB ONE (12:10)
[2024-03-16] MEDS: PRASUGREL 10 MG TAB PO ONE (12:11)
[2024-03-16] MEDS ORDERED: RX INFO: IV CONTRAST WAS GIVEN 1 EACH MISC MISCELLANE PRN (12:15)
[2024-03-16] MEDS ORDERED: ATROPINE SULFATE 0.1 MG/ML 10ML SYRINGE IV PRN (12:15)
[2024-03-16] MEDS ORDERED: ZOLPIDEM 5 MG TAB PO PRN (12:15)
[2024-03-16] MEDS ORDERED: MAG HYDROX/AL HYDROX/SIMETH 30 ML CUP PO PRN (12:15)
--- NOTE | 2024-03-16 12:46 | P.PN ---
Subjective this is a pleasant 64 years old male with past medical history of multiple medical problems as below. Patient was transferred from [facility] for chest pain. Patient has been having quite upset with his son and he went for a walk for 2 to 3 miles and then he started having chest pain. Chest pain is central nonradiating felt like tightness Rated about 8/10 in severity currently 0/10, completely resolved. Associated with little dyspnea when it happened Patient denies fever chills no change in urine or bowel habits or weakness numbness. Patient denies alcohol smoking or illicit drugs. Hemodynamically stable Labs from [facility] reviewed, WBC is 9K, hemoglobin 13.9 and platelet count 222. Sodium 142 potassium 4.7 Creatinine 1.1 and BUN elevated 27 Glucose high 268 Troponin x 2 are negative less than 0.012. Liver enzymes negative. Lipase 134 which is normal CK is 115 and 124 which are normal. Chest x-ray is negative for acute process EKG is sinus rhythm at 86 with right bundle branch block. QTc is elevated 523. His top dyeing machine tender Dr. Brown and Dr. Mooney 03/16/2024 Patient with no chest pain today no dyspnea he looks relaxed pleasant Patient underwent cardiac cath today and primary report is that tube stents were placed pending final report. Postprocedure patient also denies chest pain or dyspnea and he looks comfortable He is hemodynamically stable Echocardiogram requested and is pending Patient is placed back on his home dose of aspirin 81 mg and continued with Effient Also he is on metoprolol 50 mg and lisinopril 20 mg were added Continue with insulin and monitor glucose closely Objective - Vital Signs Vital signs: Vital Signs Temp 97.9 F 03/16/24 07:00 Pulse 68 03/16/24 07:00 Resp 20 03/16/24 07:00 BP 166/87 03/16/24 07:00 Pulse Ox 97 03/16/24 07:00 FiO2 Intake & Output 03/15/24 03/16/24 03/16/24 18:59 06:59 18:59 Intake Total 700 Output Total 400 Balance 300 Weight 81.647 kg 81.647 kg Intake: IV 700 Output: Urine 400 - Exam GENERAL: The patient is alert and oriented x3, not in any acute distress. Well developed, well nourished. HEENT: Pupils are round and equally reacting to light. EOMI. No scleral icterus. No conjunctival pallor. Normocephalic, atraumatic. No pharyngeal erythema. No thyromegaly. CARDIOVASCULAR: S1 and S2 present. No murmurs, rubs, or gallops. PULMONARY: Chest is clear to auscultation, no wheezing , no crackles. ABDOMEN: Soft, nontender, nondistended, normoactive bowel sounds. No palpable organomegaly. MUSCULOSKELETAL: No joint swelling or deformity. EXTREMITIES: No cyanosis, clubbing, or pedal edema. NEUROLOGICAL: Gross neurological examination did not reveal any focal deficits. SKIN: No rashes. no petechiae. - Labs Labs: Abnormal Lab Results - Last 24 Hours (Table) 03/16/24 Range/Units 04:12 Triglycerides 190.00 H (0.00-149.00) mg/dL Assessment and Plan Assessment: Chest pain, possible unstable angina status postcardiac cath and stent x 2 placement Prolonged QT interval Diabetes mellitus Hypertension Hyperlipidemia History of osteoarthritis History of GERD CLL Chronic cervical and back pain Obesity with BMI of 30 Plan: Currently on [id number] mg daily. Patient also on Effient Follow-up echocardiogram Continue metoprolol and lisinopril Cardiology consult labs and medication were reviewed.. Continue same treatment. Continue with symptomatic treatment. Resume home medication. Monitor lytes and vitals. DVT and GI prophylaxis. Further recommendations depends on the clinical course of the patient DVT prophylaxis: Subcutaneous heparin GI Prophylaxis: Pepcid Prognosis is guarded
[2024-03-16 14:45] VITALS: BMI 30.9
[2024-03-16 17:14] LABS: Glucose,Whole Blood 301 mg/dL (70-110)
--- NOTE | 2024-03-16 18:35 | CA ---
Transthoracic Echo Report Name: Minh Gould Age: 63 Gender: M : 1960 Exam Date: 03/16/2024 15:32 Exam Location: [facility] Ht (in): 64 Wt (lb): 180 Ordering Physician: Sadaf Moreno Attending/Referring Phys: [id number], Tiffanie [employer] Teacher Itzel Geiger RDCS Procedure CPT: Indications: LVF Cardiac Hx: Technical Quality: Fair Contrast 1: Total Dose (mL): Contrast 2: Total Dose (mL): MEASUREMENTS (Male / Female) Normal Values 2D ECHO LV Diastolic Diameter PLAX 3.7 cm 4.2 - 5.9 / 3.9 - 5.3 cm LV Systolic Diameter PLAX 3.3 cm IVS Diastolic Thickness 1.3 cm 0.6 - 1.0 / 0.6 - 0.9 cm LVPW Diastolic Thickness 1.2 cm 0.6 - 1.0 / 0.6 - 0.9 cm LV Relative Wall Thickness 0.7 RV Internal Dim ED PLAX 3.0 cm LA Systolic Diameter LX 4.5 cm 3.0 - 4.0 / 2.7 - 3.8 cm LV Diastolic Volume MOD BP 80.9 cm??? 67 - 155 / 56 - 104 cm??? LV Systolic Volume MOD BP 37.3 cm??? 22 - 58 / 19 - 49 cm??? LV Ejection Fraction MOD BP 53.9 % >= 55 % LV Cardiac Index MOD BP 1632.2 cm???/min???m??? LV Diastolic Volume MOD 4C 76.2 cm??? LV Systolic Volume MOD 4C 31.7 cm??? LV Ejection Fraction MOD 4C 58.4 % LV Cardiac Index MOD 4C 1668.0 cm???/min???m??? LV Diastolic Length 4C 7.3 cm LV Systolic Length 4C 5.6 cm LV Diastolic Volume MOD 2C 85.6 cm??? LV Systolic Volume MOD 2C 37.3 cm??? LV Ejection Fraction MOD 2C 56.4 % LV Cardiac Index MOD 2C 1808.4 cm???/min???m??? LV Diastolic Length 2C 7.4 cm LV Systolic Length 2C 6.7 cm M-MODE Aortic Root Diameter MM 3.0 cm LA Systolic Diameter MM 4.7 cm LA Ao Ratio MM 1.6 DOPPLER AV Peak Velocity 98.2 cm/s AV Peak Gradient 3.9 mmHg Mitral E Point Velocity 79.1 cm/s Mitral A Point Velocity 125.4 cm/s Mitral E to A Ratio 0.6 MV Deceleration Time 296.7 ms FINDINGS Left Ventricle Left ventricular ejection fraction is estimated at 55-60 %. Mildly increased septal wall thickness. No obvious regional wall motion abnormalities. Left ventricular cavity size normal. Right Ventricle Normal right ventricular size and function. Unable to estimate the right ventricular systolic pressure. Right Atrium Mild right atrial dilatation. Left Atrium Mildly increased left atrial diameter. Mitral Valve Structurally normal mitral valve. Trace mitral regurgitation. Moderate mitral annular calcification. No mitral stenosis. Aortic Valve Trileaflet aortic valve. No aortic valve stenosis or regurgitation. Tricuspid Valve Structurally normal tricuspid valve. Trace tricuspid regurgitation. No evidence of pulmonary hypertension. Pulmonic Valve Structurally normal pulmonic valve. No pulmonic stenosis. No pulmonic regurgitation. Pericardium No pericardial or pleural effusion. Aorta Normal size aortic root and proximal ascending aorta. CONCLUSIONS Normal LV systolic function Moderate mitral annular calcification with no stenosis but mild regurgitation Previewed by: Dr. Urbano Gaston MD (Electronically Signed) Final Date: 16 Mar 2024 18:34
[2024-03-16 20:33] LABS: Glucose,Whole Blood 331 mg/dL (70-110)
[2024-03-16] MEDS: INSULIN DETEMIR (LEVEMIR) 100 UNIT/ML SYR SQ ONE (20:45)
--- NOTE | 2024-03-16 20:51 | CC ---
CARDIAC CATHETERIZATION REPORT PROCEDURES PERFORMED: 1. Left heart catheterization and coronary angiography. 2. Percutaneous transluminal coronary angioplasty and stenting of proximal and mid left anterior descending with a drug-eluting stent. 3. IFR assessment was unsuccessful because of a problem with the IFR wire. PERFORMED BY: Dr. George Brown. ANESTHESIA: Moderate conscious sedation time was 108 minutes. The patient was administered Versed. Oxygen saturation, hemodynamic, and EKG were monitored closely. CLINICAL INFORMATION: Mr. Minh Gould is a 63-year-old gentleman with diabetes, hypertension, hyperlipidemia, CAD, who underwent stenting of obtuse marginal in 2019, had moderate disease in the LAD at that time. He has a left dominant system. He was lost to follow up for nearly 18 months and he came into the hospital with chest pain suggestive of angina, was seen by Dr. Gaston and he was advised to have coronary angiography. I discussed with the patient the risks, benefits, options, rationale. He understood all details and wished to proceed with the procedure. PROCEDURE NOTE: Under strict aseptic precautions and local anesthesia, a 6-Wolof introducer was placed in the right radial artery. A JR4 and JL3.5 catheters were used to perform coronary angiography and the same right catheter was used to check LV pressures, but LV-gram was not performed. The patient had a patent circumflex marginal that was stented in 2019, but he had significant disease in the mid LAD. The entire LAD was diffusely diseased. The ramus also had a diffuse disease. RCA was nondominant. Distal disease was noted diffusely. He was advised PCI of LAD with the understanding that he may require bypass surgery down the road. Risks, benefits, options, rationale were explained. There was no family available. PCI PROCEDURE DETAILS: I used a JL3.5 guide catheter for the PCI procedure. A run-through wire was used to cross the lesion. The mid LAD lesion was predilated with a 2.5 caliber 12 mm NC Trek balloon. A 3.25 caliber 12 mm long Xience stent was deployed with excellent result. Proximal to it was also a significant lesion with moderate calcification. This was addressed with a 23 mm long 3.25 caliber Xience stent, but the stent could not be fully expanded and the proximal 1/3rd was heavily calcified. I used a chocolate balloon of 3.0 caliber with modest improvement. I then used a 4.0 caliber 12 mm long NC Trek balloon. With this, the area was fully expanded with excellent angiographic result. I tried to perform intravascular ultrasound, but I had difficulty advancing the IVUS catheter and FFR wire I advanced was also defective, it was short and therefore, I took the angiographic appearance as being satisfactory and explained this to the patient. Excellent angiographic result without complication was achieved. The patient was sent to the room in a stable condition. He received intravenous heparin and ACT was 267 and 256. He also received 20 mg of Effient. He was already on Effient and aspirin on a regular basis. Excellent angiographic result without complication was achieved. CARDIAC CATHETERIZATION FINDINGS: Left ventricular end-diastolic pressure was 10 mmHg without any gradient across the aortic valve. CORONARY ANGIOGRAPHY FINDINGS: Right coronary artery: This is a nondominant vessel, has mild diffuse disease throughout. No critical stenosis distally. The vessels are diffusely diseased, but no critical stenosis is noted. Left main coronary artery: This is a short patent vessel. Distally, there is about a 20% narrowing of the left main and it trifurcates into a ramus or high obtuse marginal, circumflex and then LAD. The LAD has diffuse disease from the ostium onwards very similar to the previous angiographic appearance from 2019. Mid LAD, however, has a very significant lesion of about 95% best seen in the AGUSTIN caudal projection beyond a heavily calcified area. The proximal LAD also has moderate area of calcification with a 50% to 60% narrowing. Left posterior circumflex coronary artery: This is a dominant vessel. It also has a high obtuse marginal almost looks like a ramus, small in caliber, diffusely diseased. Second obtuse marginal was stented, widely patent, beyond it there is diffuse mild disease, but no critical stenosis. Continuation of circumflex in the AV groove also has some diffuse disease in it and the distal branches have mild diffuse disease, but no critical stenosis. Left ventriculogram was not performed. FINAL IMPRESSION: This patient has normal filling pressures. No gradient. The left dominant system with a diffuse disease in high first obtuse marginal or ramus and 2nd obtuse marginal was widely patent that was stented. LAD has diffuse disease, mid focal area of 90% stenosis and proximal area of 60% to 70% stenosis noted. RECOMMENDATIONS: I recommended PCI of LAD that was performed in the same setting. MMODL / IJN: [id number] /
[2024-03-16 22:45] VITALS: RESP 15
[2024-03-17] MEDS: lisinopriL 20 MG TAB PO SCH (03:20)
[2024-03-17] MEDS: METOPROLOL SUCCINATE (ER) 50 MG TAB.ER.24H PO SCH (03:21)
[2024-03-17 03:30] LABS: African American GFR (CKD) 88 (>60 ml/min/1.73 sqM); Anion Gap 12 mmol/L; Blood Urea Nitrogen 26 mg/dL (9-20); Calcium 9.1 mg/dL (8.4-10.2); Carbon Dioxide 19 mmol/L (22-30); Chloride 108 mmol/L (98-107); Glucose 232 mg/dL (74-99); Non-African American GFR(CKD) 76 (>60 ml/min/1.73 sqM); Sodium 139 mmol/L (137-145)
[2024-03-17 03:31] LABS: Basophils % (A) 0 %; Eosinophils % (A) 0 %; HCT 40.4 % (39.0-53.0); HGB 13.1 gm/dL (13.0-17.5); Lymphocytes # (A) 1.7 k/uL (1.0-4.8); Lymphocytes % (A) 20 %; MCH 29.1 pg (25.0-35.0); MCHC 32.5 g/dL (31.0-37.0); MCV 89.4 fL (80.0-100.0); Mean Platelet Volume 8.2; Monocytes # (A) 0.4 k/uL (0-1.0); Monocytes % (A) 4 %; Neutrophils # (A) 6.1 k/uL (1.3-7.7); Neutrophils % (A) 74 %; Platelet Count 232 k/uL (150-450); RBC 4.51 m/uL (4.30-5.90); RDW 14.2 % (11.5-15.5); WBC 8.3 k/uL (3.8-10.6)
[2024-03-17 06:57] LABS: Glucose,Whole Blood 185 mg/dL (70-110)
[2024-03-17 08:25] VITALS: PULSE 70
[2024-03-17 11:57] LABS: Glucose,Whole Blood 113 mg/dL (70-110)
--- NOTE | 2024-03-17 13:10 | P.PN ---
Subjective Progress Note Date: 03/17/24 PROGRESS NOTE The patient is a 63-year-old male with a known history of CAD, underwent cardiac catheterization yesterday by Dr. Brown and stenting of a heavily calcified mid and proximal LAD. He is feeling well this morning, ambulating without difficulties. He denies any chest discomfort, dizziness or palpitations. He denies any nausea. He continues to be in sinus mechanism, his ventricle systolic function by echocardiography was preserved. Medications: Amlodipine 10 mg daily, aspirin once a day, Farxiga 10 mg daily, lisinopril 20 mg daily, insulin, metoprolol succinate 50 mg daily, Effient 10 mg daily, Actos 30 mg daily. Lipitor 80 mg daily PHYSICAL EXAMINATION: Blood pressure 124/70 heart rate 60 LUNGS: Clear to auscultation HEART: Regular rate and rhythm, S1, S2. No S3. No systolic murmur ABDOMEN: Soft, nontender, no organomegaly EXTREMETIES: No edema, right radial pulse intact LAB: BUN 26, creatinine 1.05, hemoglobin 13.1 IMPRESSION: 1. Status post stenting of a calcified LAD 2. Patent stent in the OM 3. History of hypertension 4. History of hyperlipidemia PLAN: 1. Increase physical activity 2. Continue present therapy with dual antiplatelet treatment 3. Discharge home today 4. Follow-up with Dr. Brown next week Objective - Vital Signs Vital signs: Vital Signs Temp 98.3 F 03/17/24 07:00 Pulse 70 03/17/24 07:00 Resp 15 03/17/24 07:00 BP 160/73 03/17/24 07:00 Pulse Ox 98 03/17/24 11:00 FiO2 Intake & Output 03/16/24 03/17/24 03/17/24 18:59 06:59 18:59 Intake Total 940 Output Total 610 Balance 330 Weight 81.647 kg Intake: IV 700 Oral 240 Output: Urine 610 Other: # Voids 2 - Labs CBC & Chem 7: 03/17/24 03:06 03/17/24 03:06 Labs: Abnormal Lab Results - Last 24 Hours (Table) 03/16/24 03/16/24 03/16/24 Range/Units 04:12 17:12 20:32 Chloride (98-107) mmol/L Carbon Dioxide (22-30) mmol/L BUN (9-20) mg/dL Glucose (74-99) mg/dL POC Glucose (mg/dL) 301 H 331 H (70-110) mg/dL Hemoglobin A1c 9.4 H (<=6.0) % 03/17/24 03/17/24 03/17/24 Range/Units 03:06 06:55 11:56 Chloride 108 H (98-107) mmol/L Carbon Dioxide 19 L (22-30) mmol/L BUN 26 H (9-20) mg/dL Glucose 232 H (74-99) mg/dL POC Glucose (mg/dL) 185 H 113 H (70-110) mg/dL Hemoglobin A1c (<=6.0) %
--- NOTE | 2024-03-17 13:59 | P.DS ---
Providers Date of admission: 03/15/24 11:18 Expected date of discharge: 03/17/24 Attending physician: Tyson Robertson MD Consults: 03/15/24 11:17 Consult Physician Urgent Consulting Provider: Conner Rivera Consult Reason/Comments: Chest pain Do you want consulting provider notified?: Yes 03/16/24 12:15 Consult Physician Routine Consulting Provider: Conner Rivera Consult Reason/Comments: Post Interventional Patient Do you want consulting provider notified?: Already Contacted Primary care physician: Carney Hospital Course: 64 years old male with past medical history of multiple medical problems as below. Patient was transferred from [facility] for chest pain. Patient has been having quite upset with his son and he went for a walk for 2 to 3 miles and then he started having chest pain. Chest pain is central nonradiating felt like tightness Rated about 8/10 in severity currently 0/10, completely resolved. Associated with little dyspnea when it happened Patient denies fever chills no change in urine or bowel habits or weakness numbness. Patient denies alcohol smoking or illicit drugs. Hemodynamically stable Labs from [facility] reviewed, WBC is 9K, hemoglobin 13.9 and platelet count 222. Sodium 142 potassium 4.7 Creatinine 1.1 and BUN elevated 27 Glucose high 268 Troponin x 2 are negative less than 0.012. Liver enzymes negative. Lipase 134 which is normal CK is 115 and 124 which are normal. Chest x-ray is negative for acute process EKG is sinus rhythm at 86 with right bundle branch block. QTc is elevated 523. 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 Brown and Dr. Mooney 03/16/2024 Patient with no chest pain today no dyspnea he looks relaxed pleasant Patient underwent cardiac cath today and primary report is that tube stents were placed pending final report. Postprocedure patient also denies chest pain or dyspnea and he looks comfortable He is hemodynamically stable Echocardiogram requested and is pending Patient is placed back on his home dose of aspirin 81 mg and continued with Effient Also he is on metoprolol 50 mg and lisinopril 20 mg were added Continue with insulin and monitor glucose closely 03/17/24: Patient seen and evaluated bedside, patient is cleared for discharge by cardiology patient is s/p cardiac catheterization. Patient ambulating in the cagle without difficulty all questions answered GENERAL: The patient is alert and oriented x3, not in any acute distress. Well developed, well nourished. HEENT: Pupils are round and equally reacting to light. EOMI. CARDIOVASCULAR: S1 and S2 present. No murmurs, rubs, or gallops. Right radial access no hematoma PULMONARY: Chest is clear to auscultation, no wheezing , no crackles. ABDOMEN: Soft, nontender, nondistended, normoactive bowel sounds. No palpable organomegaly. MUSCULOSKELETAL: No joint swelling or deformity. EXTREMITIES: No cyanosis, clubbing, or pedal edema. NEUROLOGICAL: Gross neurological examination did not reveal any focal deficits. SKIN: No rashes. no petechiae. Assessment and plan unstable angina status postcardiac cath and stent x 2 placement in LAD Prolonged QT interval Diabetes mellitus Hypertension Hyperlipidemia History of osteoarthritis History of GERD CLL Chronic cervical and back pain Obesity with BMI of 30 * In regards to coronary artery disease, patient is s/p PCI, continue patient on lisinopril, metoprolol, amlodipine, aspirin, Effient prescription provided * In regards to chronic medical issues Home medications reviewed and reconciled outpatient follow-up with PCP * Patient ambulating in the hallway remained stable Plan - Discharge Summary New Discharge Prescriptions: New Nitroglycerin Sl Tabs [Nitrostat] 0.4 mg SUBLINGUAL Q5M PRN 10 Days #15 tab PRN Reason: Chest Pain lisinopriL [Zestril] 20 mg PO DAILY@0300 30 Days #30 tab Metoprolol Succinate (ER) [Toprol XL] 50 mg PO DAILY@0300 30 Days #30 tab Continue Levocetirizine Dihydrochloride [Xyzal] 5 mg PO DAILY@0300 amLODIPine [Norvasc] 10 mg PO DAILY@0300 Omeprazole [PriLOSEC] 20 mg PO BID@0300,1500 Insulin Glargine,Hum.rec.anlog [Lantus Solostar Pen] 30 unit SQ BID@0300,1500 Pioglitazone [Actos] 30 mg PO DAILY@0300 Mv-Min/Folic/K1/Lycopen/Lutein [Centrum Silver Men Tablet] 1 tab PO DAILY@0300 Aspirin EC [Ecotrin Low Dose] 81 mg PO DAILY@0300 Fluticasone Nasal Benton [Flonase Nasal Benton] 1 - 2 spr EA NOSTRIL BID PRN PRN Reason: Allergy Symptoms Atorvastatin [Lipitor] 80 mg PO DAILY@0300 Cyanocobalamin (Vitamin B-12) [Vitamin B-12] 1,000 mcg PO DAILY@299 Cholecalciferol [Vitamin D3 (25 Mcg = 1000 Iu)] 100 mcg PO DAILY@030 Ascorbic Acid [Vitamin C] 500 mg PO DAILY@299 EPINEPHrine (Auto Inject) [Epipen] 0.3 mg IM ONCE PRN PRN Reason: Anaphylaxis Empagliflozin [Jardiance] 25 mg PO DAILY@299 Changed Prasugrel [Effient] 10 mg PO DAILY@299 30 Days #30 tab Discontinued lisinopriL [Prinivil] 10 mg PO DAILY@299 Metoprolol Succinate (ER) [Toprol Xl] 25 mg PO DAILY@299 Discharge Medication List Levocetirizine Dihydrochloride [Xyzal] 5 mg PO DAILY@29912/10/19 [History] Omeprazole [PriLOSEC] 20 mg PO BID@299,149912/10/19 [History] amLODIPine [Norvasc] 10 mg PO DAILY@29912/10/19 [History] Insulin Glargine,Hum.rec.anlog [Lantus Solostar Pen] 30 unit SQ BID@299,149912/11/19 [History] Pioglitazone [Actos] 30 mg PO DAILY@29912/11/19 [History] Ascorbic Acid [Vitamin C] 500 mg PO DAILY@29903/15/24 [History] Aspirin EC [Ecotrin Low Dose] 81 mg PO DAILY@29903/15/24 [History] Atorvastatin [Lipitor] 80 mg PO DAILY@29903/15/24 [History] Cholecalciferol [Vitamin D3 (25 Mcg = 1000 Iu)] 100 mcg PO DAILY@29903/15/24 [History] Cyanocobalamin (Vitamin B-12) [Vitamin B-12] 1,000 mcg PO DAILY@29903/15/24 [History] EPINEPHrine (Auto Inject) [Epipen] 0.3 mg IM ONCE PRN 03/15/24 [History] Empagliflozin [Jardiance] 25 mg PO DAILY@29903/15/24 [History] Fluticasone Nasal Benton [Flonase Nasal Benton] 1 - 2 spr EA NOSTRIL BID PRN 03/15/24 [History] Mv-Min/Folic/K1/Lycopen/Lutein [Centrum Silver Men Tablet] 1 tab PO DAILY@29903/15/24 [History] Metoprolol Succinate (ER) [Toprol XL] 50 mg PO DAILY@299 30 Days #30 tab 03/17/24 [Rx] Nitroglycerin Sl Tabs [Nitrostat] 0.4 mg SUBLINGUAL Q5M PRN 10 Days #15 tab 03/17/24 [Rx] Prasugrel [Effient] 10 mg PO DAILY@299 30 Days #30 tab 03/17/24 [Rx] lisinopriL [Zestril] 20 mg PO DAILY@299 Days #30 tab 03/17/24 [Rx] Follow up Appointment(s)/Referral(s): Ra Montes De Oca MD [STAFF PHYSICIAN] - Alex Mars MD [Primary Care Provider] - 1-2 days Zeke Brown MD [REFERRING] - 1 Week Discharge Disposition: HOME SELF-CARE
[2024-03-17 15:07] VITALS: BP 184/79; TEMP 97.6
== END 2024-03-17 15:11 | disposition home or self-care (01) ==
LOC: EC 10:39 → 6NMEDSUR 11:18
PROVIDERS: ADMIT Internal Medicine; ATTEND Internal Medicine
DX: I25.110 Atherosclerotic heart disease of native coronary artery with unstable angina pectoris (principal); I11.9 Hypertensive heart disease without heart failure; I08.0 Rheumatic disorders of both mitral and aortic valves; E78.00 Pure hypercholesterolemia, unspecified; I45.10 Unspecified right bundle-branch block; R94.31 Abnormal electrocardiogram [ECG] [EKG]; M19.90 Unspecified osteoarthritis, unspecified site; K21.9 Gastro-esophageal reflux disease without esophagitis; C91.10 Chronic lymphocytic leukemia of B-cell type not having achieved remission; E11.65 Type 2 diabetes mellitus with hyperglycemia; G89.29 Other chronic pain; M54.9 Dorsalgia, unspecified; M54.2 Cervicalgia; E66.9 Obesity, unspecified; Z68.30 Body mass index [BMI] 30.0-30.9, adult; Z79.82 Long term (current) use of aspirin; Z79.84 Long term (current) use of oral hypoglycemic drugs; Z79.4 Long term (current) use of insulin; Z79.02 Long term (current) use of antithrombotics/antiplatelets; Z79.899 Other long term (current) drug therapy; Z91.041 Radiographic dye allergy status; Z91.013 Allergy to seafood; Z91.011 Allergy to milk products; Z88.8 Allergy status to other drugs, medicaments and biological substances; Z91.018 Allergy to other foods; Z86.73 Personal history of transient ischemic attack (TIA), and cerebral infarction without residual deficits; Z95.5 Presence of coronary angioplasty implant and graft
CPT/HCPCS: 96376; 96374; 96375; 99285; 93005; 93306; 93458; 80061; 80048; 84484; 85025; 83036; G0378 ×3; C9600; C1887; C1769 ×3; C1894; C1753; C1874 ×2; C1725 ×5; J2250; J1200; J2001; J1644; C9113 ×3; Q9967; J2305; J2919